=== PATIENT | female | born 1945 | race Caucasian/White ===

== ENCOUNTER 2022-06-10 14:36 | Inpatient (IN) ==
--- NOTE | 2022-06-10 15:06 | Internal Med History&Physical ---
HPI History of Present Illness Patient information: Note initiated : 06/10/22 at 3:04 pm Service Date, if different from initiated Date: [] Patient: Megan Comer a 77 y/o F admitted on for Choledocholithiasis. Chief Complaint: [abdominal pain] Chief complaint: abdominal pain History of present illness: Ms. Comer is a 77 year old F history of atrial fibrillation's status post pacemaker placement and on anticoagulations with Eliquis, chronic systolic CHF on Coreg, Lasix, Aldactone, lisinopril, presenting with epigastric and right upper quadrant abdominal pain. She presented to outside hospital ([facility]) ER, where she got the diagnosis of choledocholithiasis with 7.5 mm gallstone in the distal common bile duct with associated gallbladder wall fluid collection with swelling. The ER physician talked to our GI specialist Dr. Estevez who would want to perform ERCP. They also touch base with general surgeon Dr. Raymond who would want to be found laparoscopic cholecystectomy tomorrow. Admission request was called for medical management. Constitutional Constitutional: Absent chills, excessive sweating, fatigue, fever(s) or weakness EENT Eyes: Absent blurry vision, change in vision, loss of vision or other visual disturbances Ears: Absent decreased hearing or tinnitus Nose, mouth and throat: Absent abnormal hearing, dry mouth, headache(s), nasal congestion or sore throat Cardiovascular Cardiovascular: Absent chest pain, chest pain at rest, edema, irregular heart rhythm or palpatations Respiratory Respiratory: Absent cough, dyspnea or wheezing Gastrointestinal Gastrointestinal: Present abdominal pain; Absent constipation, diarrhea, nausea or vomiting Musculoskeletal Musculoskeletal: Absent back pain, deformity, limited range of motion, muscle cramps, muscle weakness or numbness Integumentary Integumentary: Absent lesions, rash or wounds Neurological Neurological: Absent focal weakness, headache(s) or numbness Psychiatric Psychiatric: Absent anxiety, depression or hallucinations PFSH PFSH All Active Problems (Updated 06/10/22 @ 15:11 by Elan Shelton MD) Choledocholithiasis with acute cholecystitis with obstruction (Acute) VALLE (dyspnea on exertion) (Acute) Post covid-19 condition, unspecified (Acute) Shortness of breath at rest (Acute) Fatigue (Acute) Acute on chronic systolic CHF (congestive heart failure) (Acute) SOB (shortness of breath) (Acute) Productive cough (Acute) Cellulitis (Acute) Hx of atrioventricular node ablation (Acute ~01/10/20) Varicose veins of both lower extremities (Chronic) Adverse effect of COVID-19 vaccine (Acute) History of cardioversion (Chronic ~09/2015) Diverticulosis (Chronic) History of rectocele (Chronic ~12/29/07) History of cystocele (Chronic) Salivary stone (Chronic) Presence of biventricular cardiac pacemaker (Chronic ~09/2012) Glaucoma (Chronic) Pulmonary HTN (Chronic) LBBB (left bundle branch block) (Chronic) PMS (premenstrual syndrome) (Chronic) Mitral regurgitation (Chronic) Other screening breast examination (Chronic) Atrial fibrillation (Chronic) Systolic CHF, chronic (Chronic) Urinary incontinence (Acute) Postmenopausal (Acute) Dilated cardiomyopathy (Acute) Anemia (Acute) Internal hemorrhoids (Acute) Herpes zoster (Acute) Dyspnea on exertion (Chronic) Hyperlipidemia (Acute) Osteopenia (Acute) Insomnia (Acute) Hemorrhoids (Acute) Scoliosis of thoracolumbar spine (Acute) Medication monitoring encounter (Acute) Vaginal atrophy (Chronic) Abnormal thyroid function test (Acute) Medical History Adverse effect of COVID-19 vaccine Atrial fibrillation CHF (congestive heart failure) Diverticulosis Early cataracts, bilateral Glaucoma History of cardioversion (~09/2015) and 06/15/2016 History of cystocele History of echocardiogram History of rectocele (~12/29/07) With incontinence. Dr. Cooper. LBBB (left bundle branch block) Mitral regurgitation Other screening breast examination PMS (premenstrual syndrome) Post covid-19 condition, unspecified Presence of biventricular cardiac pacemaker (~09/2012) Pulmonary HTN Salivary stone Systolic CHF, chronic Varicose veins of both lower extremities Surgical History History of abdominal hysterectomy History of bladder suspension procedure (~12/2007) History of colonoscopy (~12/2006) History of dilation and curettage History of tonsillectomy and adenoidectomy Hx of atrioventricular node ablation (~01/10/20) Family History Sister Cervical cancer Social History marital status: MEDS/ALLERGIES Home Medications and Allergies Home Medications Medication Instructions Recorded Confirmed Type calcium carbonate 600 mg calcium 600 mg PO QDAY 07/24/19 05/14/22 History (1,500 mg) tablet (Calcium) travoprost 0.004 % eye drops 1 drp ophthalmic (eye) QPM 07/24/19 05/14/22 History (Travatan Z) apixaban 5 mg tablet (Eliquis) 5 mg PO BID #180 tabs 07/04/21 05/14/22 Rx lisinopril 5 mg tablet 5 mg PO QHS #90 tabs 08/25/21 05/14/22 Rx potassium chloride 10 mEq See Rx Instructions .Route 01/07/22 05/14/22 Rx tablet,extended release .COMPLEX #90 tabs spironolactone 25 mg tablet See Rx Instructions .Route 01/07/22 05/14/22 Rx .COMPLEX #45 tabs carvedilol 25 mg tablet 25 mg PO BID #60 tabs 01/08/22 05/14/22 Rx omega-3 acid ethyl esters 1 gram 1 cap PO TID 90 days #270 caps 02/11/22 05/14/22 Rx capsule (Lovaza) furosemide 20 mg tablet 20 mg PO QDAY #90 tabs 04/29/22 05/14/22 Rx Allergies Allergy/AdvReac Type Severity Reaction Status Date / Time brimonidine [From Alphagan P] Allergy Intermediate Eye Verified 05/14/22 08:00 Irritation Flecainide Allergy Intermediate Unknown Verified 05/14/22 08:00 EXAM Constitutional General appearance: cooperative and no acute distress Head Head exam: Present atraumatic and normocephalic Eye Eye exam: Present EOMI and PERRL ENT ENT exam: Present mucous membranes moist, normal exam and normal external ear exam Neck Neck exam: Present normal inspection; Absent lymphadenopathy, tenderness or thyromegaly Respiratory Respiratory exam: Absent accessory muscle use, respiratory distress or wheezes Cardiovascular Cardiovascular exam: Present irregular rhythm; Absent JVD Additional comments: pacemaker in place GI/Abdominal GI/Abdominal exam: Present normal bowel sounds and soft; Absent organomegaly or tenderness Extremities Exam Extremities exam: Present full ROM, normal capillary refill and normal inspection; Absent tenderness Neurological Exam Neurological exam: Present alert, CN II-XII intact and oriented X3; Absent motor sensory deficit Psychiatric Psychiatric exam: Present normal affect and normal mood; Absent anxious or depressed Skin Skin exam: Present dry and intact A/P Assessment and plan (1) Choledocholithiasis with acute cholecystitis with obstruction: Status: Acute (2) Systolic CHF, chronic: Status: Chronic (3) Atrial fibrillation: Status: Chronic Qualifiers: Atrial fibrillation type: unspecified persistent Qualified Code(s): I48.19 - Other persistent atrial fibrillation; I48.1 - Persistent atrial fibrillation Narrative A/P Narrative: Assessment and Plans: 1. Choledocholithiasis with cholecystitis with obstruction: Inpatient med surg NPO with IV fluid NS@75cc/hr Consult GI specialist Dr. Fraser for ERCP Consult general surgeon Dr. Raymond for potential laparoscopic cholecystectomy Zosyn Tylenol Oxycodone Morphine IV Holding Eliquis 2. h/o atrial fibrillation s/p pacemaker placement: Holding Eliquis Coreg as rate control 3. h/o chronic systolic CHF: Coreg as rate control Lisinopril Holding Lasix and Aldactone as diuretics since patient is NPO with IV fluid for now GI ppx: not currently indicated DVT ppx: SCDs Code status: Full Prognosis: guarded Disposition: inpatient med surg Time Spent With Patient Time: Total time spent is greater than 50% in coordination of care (as documented) at patient's floor/unit and/or counseling patient: Total time spent with greater than 50% in coordination of care (as documented) at patient's floor/unit and/or counseling patient:: 50 - 70 minutes
--- OUTSIDE RECORDS SUMMARY | 2022-06-10 15:29 | External Medical Summary | Encounter Summary ---
:1945 Author Care Team Providers Name Role Phone Evelia Mixon MD Primary Care Provider [phone] Reason for Visit 1 WK FOLLOW-UP Assessment and Plan Assessment Note Total time: 50 minutes. Preparing to se e the patient (i.e. review of tests, prior records, imaging, etc.), obtaining revie wing history, performing medically appropriate examination and evaluation, counseling and education with the patient/family/caregiver, ordering medic ations, tests, or procedures, referring and communicating with other healthcare prof essionals, documenting clinical information in the health record, documentation on t he day of encounter, independently interpreting results (not if separately reported), communicating results to patient/family/caregiver, and care coord ination (that is not separately reported). 1. Acute on chronic systolic heart fail ure LV Function EF % NYHA Class AHA/ACC Stage 2000 mg sodium restriction Cr 0.7 Meds: RACHEAL/ARB: lisinopril Beta-kulwant: carvedilol Aldosterone receptor antagonist: spirono lactone Loop diuretic: furosemide Discussion: Fluid status improved although still davalos s a bit to go. Need to check BMP,BNP. Increase spironolactone 25 mg daily and continue furosemide 10 mg daily with additional 10 mg for acute weight gain more than 2lbs in 24H. Acute decrease in LV function will proc eed with ischemic and non-ischemic evaluations. Apparently amyloidosis in the family. Need to continue to intensely monitor fl uid status, renal function, and electrolytes. BMP, serum or plasma pro BNP (pro B-type natriuretic pepti de), serum or plasma 2. Dilated cardiomyopathy Etiology is not quite clear. Mother wit h amyloid. We will initiate screening with light chains, SPEP, TSH, ferritin, and P YP scan. protein electrophoresis panel, serum or plasma kappa + lambda light chains, free + r atio, quantitative, serum unlisted imaging order - electronic warfare technician netium SPECT ferritin, serum or plasma TSH, serum or plasma 3. Essential hypertension Controlled on the current regimen. 4. Biventricular automatic implantable cardioverter defibrillator in situ In-office evaluation of BiV ICD implant ed for dilated cardiomyopathy Findings: Normal device function with on e episode of NSVT. Routine device clinic f/u 5. Dyspnea on exertion Acute exacerbation resolving. However, acute decline in LV systolic function again. We will check a lexiscan also for ischem ia. lexiscan cardiolite stress test (PROC ) Discussion Note 1. Stop potassium 2. Continue spironolactone 25 mg 3. May try furosemide 10 mg but must frank e additional 10 mg for acute weight gain more than 2 lbs in 24 H. (Frustrated with urinary frequency) 4. Amyloid screening 5. Lexiscan 6. F/U 3 weeks Patient educational handouts: No information available. Plan of Care Reminders Provider Appointments Ferny Ruiz 06/17/2022 Elvis Garcia NP 10:30AM Lab BMP, Serum or Plasma 05/27/2022 [facility] Pro BNP (Pro B-type 05/27/2022 [facility] Natriuretic Peptide), Serum or L ab Plasma Protein Electrophoresis 06/01/2022 [facility] Panel, Serum or Plasma Lab [place] + Lambda Light [place], 06/01/2022 [facility] Free + Ratio, Quantitative, Lab Serum Ferritin, Serum or Plasma 06/01/2022 [facility] TSH, Serum or Plasma 06/01/2022 [facility] Referral None recorded. Procedures Lexiscan Cardiolite Stress 06/02/2022 [facility] Radiology Test (PROC) Surgeries None recorded. Imaging Unlisted Imaging Order 06/09/2022 [facility] R adiology Medications Name Start Date carvedilol 25 mg tablet TAKE 1 TABLET BY MOUTH TWICE DAILY WITH THE MORNING A ND EVENING MEAL Eliquis 5 mg tablet Take 1 tablet twice a day by oral route. furosemide 20 mg tablet TAKE 1/2 TABLET BY MOUTH ONCE DAILY latanoprost 0.005 % eye drops INSTILL 1 DROP INTO AFFECTED EYE(S) BY OPHTHALMIC ROUTE ONCE DAILY INTHE EVENING lisinopril 5 mg tablet TAKE 1 TABLET BY MOUTH EVERY NIGHT AT BEDTIME melatonin omega-3 acid ethyl esters 1 gram capsule Take 1 capsule 3 times a day by oral route as directe d for 90 days. Sleep Aid (diphenhydramine) 25 mg capsule Take by oral route. spironolactone 25 mg tablet Take 1 tablet every day by oral route. Notes: Still not feeling well with spi ronolacrtone, verified medications with patient verbally. No changes. -AG 05/27 Medications Administered None recorded. Vitals Height Weight BMI Blood Pressure 5 ft 1 in 124 lbs 23.4 kg/m2 118/66 mm[Hg] Results Lab Results Date Name Specimen Result Interpretation Description Value Range Status Address 06/02/2022 TSH, Serum Plasma Thyroid 3.14 0.27-5.01 Nita l [facility] or Plasma Stimulating uIU/mL uIU/mL Re gional Lab: Hormone If [address] , [place] 06/02/2022 Ferritin, Plasma Ferritin 344.0 30.0-400.0 Fin al [facility]ologists' Serum or NG/mL NG/mL Regional Lab: Plasma [address] [facility] , [place] 06/02/2022 [place] + Serum [place] Light 19.02 3.30-19.40 Fi nal Pathologists' Lambda Chains, Free mg/L mg/L Vanessa onal Lab: Light [address] [facility] , [place], [place] Free + Ratio, Quantitati ve, Serum Serum Lambda Light 14.82 5.71-26.30 Final [facility] Chains, Free mg/L mg/L Vanessa onal Lab: [address] [place] [address] Serum [place]/lambda 1.283 0.260-1.65 Final [facility]ologists' Ratio 0 Regional L ab: [address] [place] [address] , [place] 06/02/2022 Protein Serum Total Protein 7.0 5.9-8.4 Fin al [facility]ologists' Electropho Sep gm/dL gm/dL Region al Lab: resis [address] , [facility] Serum or Plasma Serum Albumin Sep 3.57 3.10-4.70 Final P athologists' gm/dL gm/dL Regional L ab: [address] [place] [address] , [place] Serum Ssacr-4-Tgjve 0.33 0.10-0.50 Final Pathologists' socorro gm/dL gm/dL Regional L ab: [address] [place] [address] , [place] Serum Raogw-0-Ofjxo 0.91 0.40-1.20 Final Pathologists' socorro gm/dL gm/dL Regional L ab: [address] [place] [address] , [place] Serum High Beta 1.28 0.60-1.20 Final Patholo gists' Globulins gm/dL gm/dL Regiona l Lab: [address] , [place] Serum Gamma 0.91 0.50-1.70 Final Patholo gists' Globulins gm/dL gm/dL Regiona l Lab: [address] [place] [address] Serum Globulin Sep 3.4 2.4-3.6 Final Pa thologists' gm/dL gm/dL Regional L ab: [address] [place] [address] Serum A/g Ratio Sep 1.0 0.9-1.7 Final P athologists' ratio ratio Regional L ab: [address] [place] [address] Serum Interpretatio see Final Pa thologists' n comment Regional Lab: [address] [place] [address] 05/27/2022 Pro BNP Plasma High Probnp 3282.0 <450.0 Final Path ologists' (Pro pg/mL pg/mL Regional L ab: B-type [address] [place] [address] , [place] Jonathan on c Peptide), Serum or Plasma 05/27/2022 BMP, Serum Plasma High Glucose,rando 136 70-105 F inal Pathologists' or Plasma m mg/dL mg/dL Regiona l Lab: [address] [place] [address] Plasma Blood Urea 16 mg/dL 8-23 mg/dL Final [facility]ologists' Nitrogen Regional Lab: [address] [place] [address] , [place] Plasma Creatinine 0.7 0.6-1.1 Final Path ologists' mg/dL mg/dL Regional L ab: [address] [place] [address] Plasma Low Sodium 132 133-145 Final Patholog ists' mmol/L mmol/L Regional L ab: [address] [place] [address] Plasma Potassium 4.0 3.3-5.1 Final Patho logists' mmol/L mmol/L Regional L ab: [address] [place] [address] , [place] Plasma Low Chloride 95 96-108 Final Patholo gists' mmol/L mmol/L Regional L ab: [address] [place] [address] , [place] Plasma Low Carbon 21 22-30 Final Pathologi sts' Dioxide mmol/L mmol/L Regional Lab: [address] [place] [address] Plasma Anion Gap 16.0 8.0-16.0 Final Path ologists' Regional L ab: [address] [place] [address] Plasma Calcium 10.0 8.6-10.4 Final Pathol ogists' mg/dL mg/dL Regional L ab: [address] [place] [address] , [place] Plasma Glomerular 85 Final Patho logists' Filtration Region al Lab: Rate [address] [place] [address] Allergies Code Code System Name Reaction Severity Onset 783774 RxNorm Brimonidine Tachycardia 4441 RxNorm Flecainide Tachycardia NKDA Problems Name Status Onset Date Source Hyperlipidemia Active 04/16/2008 Dilated Cardiomyopathy Active 09/15/2011 Chronic Systolic Heart Failure Active 04/17/2012 Essential Hypertension Active 04/23/2016 Non-rheumatic Mitral Regurgitation Active 08/05/2016 Atrial Fibrillation and Flutter Active 03/16/2017 Biventricular Automatic Implantable Cardioverter Defibrillat or Active 05/13/2017 in Situ Maintenance of Automatic Cardiac Defibrillator Active 0 12/28/2018 Notes: Biventricular defibrillator, Me dtronic implanted in 2016. Lead[address] in place since 2012. Procedures Date Name Performed by 05/13/2017 Defibrillator Placement Information not available Notes: Biventricular Medtronic Defibri llator, leads implanted 10/08/2012 06/15/2016 Cardioversion Information not avai lable 05/25/2016 Heart Catheterization Information not av ailable Notes: CARDIAC/L HEART CATH/L VGRAM/CO R ANGIO 04/27/2016 Cardioversion Information not avai lable 09/26/2015 Cardioversion Information not avai lable 09/13/2014 Cardioversion Information not avai lable 10/04/2012 Defibrillator Placement Information not available Notes: BiVentricular Defibrillator- Dr Dinesh Groves 07/02/2005 Heart Catheterization Information not av ailable Notes: Bilateral Heart Catheterization and Angiography Tonsillectomy Information not avai lable Hysterectomy Information not avai lable Vaccine List Notes: Some vaccines listed in Documen t: #[id number] could not be added to this patient's chart. Please review this docu ment and add these vaccines to the patient's chart manually as needed. Social History Tobacco Smoking Status Never Smoker What is your level of alcohol consumption? None Are you able to walk? YESWOREST Has tobacco cessation counseling been provided? N Which illicit or recreational drugs have you used? none How much tobacco do you chew? none Are you passively exposed to smoke? N What was the date of your most recent tobacco screening? 12/2021 What is your level of caffeine consumption? Moderate At what age did you start smoking tobacco? 0 How many years have you smoked tobacco? 0 Family History Relation Problem Onset Age of Age Notes Mother Staphylococcal infectious (No Information) N/A (No Notes) disease Functional Status Unknown. Past Encounters 05/27/2022 Acute on Chronic Systolic Heart Failure; Dilated Cardiomyopathy; Essential Hypertension; Biventricular Automatic Implantable Cardioverter Defibrillator in Situ; Dyspnea on Exertion Dotty Garcia BLOCK HANDLER: [address] [place] [address], [place] [id number], Ph. 05/20/2022 Acute on Chronic Systolic Heart Failure; Dilated Cardiomyopathy; Essential Hypertension; Biventricular Automatic Implantable Cardioverter Defibrillator in Situ Jose Alberto Rai MD: [address] [place] [address] , [place] [id number], Ph. History of Present Illness Note: <div>Megan returns today and reports that she does feel better with diuresis. However, still reports VALLE. </div><div>
</div><div>Last visit:</div><div>1. Echo </div><div>2. Call with results </div><div>3. Increase lasix and aldactone </div><div>4. Follow up in one week.</div><div>
</div><div>CARDIAC and medical history: </div><div>LBBB </div><div>Nonischemic cardiomyopathy </div><div>Normal heart cath. </div><div>BiV iCD 2012 with gen change 2017 </div><div>Chronic atrial flutter </div><div> </div><div> </div><div>Data review: </div><div>I have independently interpreted: </div><div>
</div><div>US/COMPLETE ECHOCARDIOGRAPHY 05/26/22</div><div>CONCLUSIONS: </div><div>1. Moderate left ventricular dilation. Moderate global hypokinesis </div><div>with an estimated left ventricular ejection fraction 30-35%. </div><div>2. Moderate left ventricular diastolic dysfunction, with mildly </div><div>elevated left ventricular filling pressure. </div><div>3. Normal right ventricular size with mild global hypokinesis. </div><div>4. Severe left atrial and mild right atrial enlargement. </div><div>5. Mild aortic insufficiency. </div><div>6. Moderate mitral and tricuspid regurgitation. </div><div>7. Mild pulmonary hypertension. </di v><div>8. No pericardial effusion. </div><div>9. Compared to the prior study in August 2021 mild the left </div><div>ventricular systolic dysfunction appears to have deteriorated. </div><div>
</div><div>
</div><div>CXR 04/2022. Interstitial edema </div><div>Echo 08/2021. EF 40. Moderate MR. </div><div> </div><div>Labs: </div><div>BNP 4691 </div><div>AST 138 </div><div>Cr 0.8 </div><div>BNP 78176 04/2022 </div><div>Cr 0. </div><div>Trop < 0.01 04/2022 </div>Review of Systems: ROS as noted in the HPI Review of Systems Brief Cardiology ROS Reported By: Patient Cardio Basic: Cardiovascular Symptoms: dys pnea on exertion, fatigue, palpitations Physical Exam Notes: <div>General. No acute distr ess. Conversant. </div><div> </div><div>HEENT. Normocephalic atraumatic. Mu cous membranes moist. Sclera anicteric. Oropharynx clear. </div><div> </div> <div>Chest. Clear. Normal effort. Symmetric. </div><div> </div><div>Ca rdiovascular. Neck veins elevated. Normal S1 and S2. No gallops or rubs. </di v><div> </div><div>Abdomen. Normal bowel sounds. Soft nontender nondistended. No appreciated hepatosplenomegaly. </div><div> </div><div>Extremities. No c yanosis. No clubbing. No edema. </div><div> </div><div>Skin. Warm and dr y. No rashes. </div><div> </div><div>Neurological. Alert and oriented x3. Nonfo bonilla. No asymmetry is noted. </div><div> </div><div>Psychiatric. Affe ct and tone are normal.</div>
--- OUTSIDE RECORDS SUMMARY | 2022-06-10 15:29 | External Medical Summary | Encounter Summary ---
:1945 Author Care Team Providers Name Role Phone Evelia Mixon MD Primary Care Provider [phone] Reason for Visit new patient Assessment and Plan 1. Acute on chronic systolic heart fail ure Acute decompensation of CHF. Neck veins elevated. Recent ED visit. BNP 10K. Needs more aggressive diuresis. Increase lasix to 30 mg daily. Increase spironolactone to 25 mg daily. Daily weights. Fluid and sa lt restriction. Follow up closely. Need to intensively monitor electrolytes and addis al function while diuresing. 2. Dilated cardiomyopathy EF 40% in August -- declined since pre vious. Plan to repeat echo given decompensation. trans-thoracic echocardiogram (TTE) ( PROC) 3. Essential hypertension BP reasonable 4. Biventricular automatic implantable cardioverter defibrillator in situ Functioning appropriately. Discussion Note 1. Echo 2. Call with results 3. Increase lasix and aldactone 4. Follow up in one week. Patient educational handouts: No information available. Plan of Care Reminders Provider Appointments Ferny Ruiz 06/17/2022 Elvis Garcia NP 10:30AM Lab None recorded. Referral None recorded. Procedures Trans-thoracic Echocardiogram 05/20/2022 [facility] Radiology (TTE) (PROC) Surgeries None recorded. Imaging None recorded. Medications Name Start Date carvedilol 25 mg [...] BMI Blood Pressure 5 ft 1 in 121.4 lbs 22.9 kg/m2 111/74 mm[Hg] Results Lab Results None recorded. Allergies Code Code System Name Reaction Severity Onset 383933 RxNorm Brimonidine Tachycardia 4441 RxNorm Flecainide Tachycardia [...] Notes: Some vaccines listed in Documen t: #[id number] could not be added to this patient's [...] Notes) disease Functional Status Unknown. Past Encounters 05/20/2022 Acute on Chronic Systolic Heart Failure; Dilated Cardiomyopathy; Essential Hypertension; Biventricular Automatic Implantable Cardioverter Defibrillator in Situ Jose Alberto Rai MD: [address] [place] [address] , [place] [phone], Ph. History of Present Illness Note: <div>Recent viral illness. Temp 100. Difficult breathing. Went to ED. Pulmonary vascular congestion. </div><div>Decompensated systolic chf.</div><div>Started taking vinegar and honey.</div><div>Patient last seen in office November 2018</div><div>
</div><div><strong>CARDIAC and medical history:</strong></div><div>LBBB</div><div>Nonischemic cardiomyopathy</div><div>Normal heart cath. </div><div>BiV iCD 2012 with gen change 2016</div><div>Chronic atrial flutte r</div><div>
</div><div>
</div><div><strong>Data review:</strong></div><div>I have independently interpreted:</div><div>CXR 04/2022. Interstitial edema</div><div>Echo 08/2021. EF 40. Moderate MR.</div ><div>
</div><div><strong>Labs:</strong></div><div>BNP 4691</div><div>AST 138</div><div>Cr 0.8</div><div>BNP 38789 04/2022</div><div>Cr 0.9 04/2022</div><div>Trop < 0.01 04/2022</div ><div>
</div><div>
</div><div>
</div&g t;<div>
</div><div>
</div><div>
</div><div>
</div><p>Patient is here for follow-up of her chronic systolic heart failure due to known ischemic dilated cardiomyopathy, most likely hypertensive heart disease with left bundle branch block. She is in chronic atrial flutter with good resynchronization. Biventricular defibrillator implanted in 2012 with generator replacement in 2017. Paroxysmal atrial arrhythmia since before device implantation recurrent on amiodarone. She was evaluated for ablation in 2017, however, in view of a stable symptoms and clinical findings she decided not to proceed with invasive treatment. She had been off amiodarone since with good resynchronization and no recurrence of heart failure symptoms.</p><div>
</div><p>She denies VALLE, fatigue or dizziness, CP, palpitation, PND, SOB at rest, orthopnea, ELAYNE or syncope. She has no claudication and keeps regularexercise including hiking.</p><div>
</div><p>She has no diabetes, no myocardial infarction or coronary artery disease [normally cath], had long standing hypertension, well controlled on present regimen, no diabetes, stroke or TIA. She has hypercholesterolemia but is adamant about not taking statin.</p><div>
</div><p>She had [employer] biventricular defibrillator implanted in 2012, generator replacement in 2017. Never had ventricular arr hythmias or shocks.</p><div>
</div><p>Occasionally after busy day she feels that her heart rate is faster than normal when she goes to bed, she takes Benadryl with resolution of symptom, she never took pause to tell me when her heart rate actually is with symptoms. Shehad coronary angiogram and ultrasound which showed that with RVR patient has significant mitral insufficiency improved significantly with the heart rate 60 -70 bpm. On present medical therapy she remains paced 96.3%. Recommended Replacement Time for defibrillator was reached on February 19. </p><div>
</div><p>Normal blood work including normal TSH, electrolytes and kidney function. Last digoxin level was within therapeutic range.</p><div>
</div><div>
</div><p>Cardiac Procedures:</p><div>
</div><p>Echo 05/2016, at [facility]. </p><div>
</div><p>A heart cath 05/2016, [facility]: no CAD </p><div>
</div><p>last CV 05/2016 </p><div>
</div><p>CRTD, MDT device since 2012, generator replacement 2016.</p><div>
</div><p> Lifestyle and Disease Management: Diet: She consumes a diverse and healthy diet. Weight Issues: She does not have any weight concerns. Exercise: She exercises regularly. Smoking: She does not use tobacco. Alcohol: She denies alcohol use. Drug Use: She denies drug use</p><div>
</div><div>
</div><p>ECG today shows biventricular paced rhythm at 74 ppm. 100% capture. QRS 148 ms.</p><div>< br></div> Review of Systems Brief Cardiology ROS Reported By: Patient Cardio Basic: Cardiovascular Symptoms: lig htheadedness, dyspnea on exertion, fatigue, palpitations Physical Exam Notes: <div>Examination</div><div>< br></div><div>Vitals see above</div><div>
</div><d iv>General. No acute distress. Conversant.</div><div>
</div><div>HEENT. Normocephalic atraumatic. Mucous membranes moist. Scle ra anicteric. Oropharynx clear.</div><div>
</div>< div>Chest. Clear. Normal effort. Symmetric.</div><div>
</d iv><div>Cardiovascular. Neck veins elevated. Normal S1 and S2. No gallops or rubs.</div><div>
</div><div>Abdomen. Normal bowel sounds. Soft no ntender nondistended. No appreciated hepatosplenomegaly.</div><di v>
</div><div>Extremities. No cyanosis. No clubbing. No edema.</div><di v>
</div><div>Skin. Warm and dry. No rashes.</div><div>
</div> <div>Neurological. Alert and oriented x3. Nonfocal. No asymmetry is no yunior.</div><div>
</div><div>Psychiatric. Affect and tone are normal.</div><d iv>
</div><div>
</div><div>
</div>
--- OUTSIDE RECORDS SUMMARY | 2022-06-10 15:29 | External Medical Summary ---
:1945 Author Care Team Providers Name Role Phone SHANEKA ARROYO MD Primary Care Provider [phone] Allergies Code Code System Name Reaction Severity Status Onset 197159 RxNorm Brimonidine Tachycardia Active 4441 RxNorm Flecainide Tachycardia Active NKDA Medications Name Status Start Date Stop Date amoxicillin 500 mg capsule Completed 11/24 amoxicillin 500 mg tablet Completed 2021 azithromycin 250 mg tablet Completed 05/20 Azopt 1 % eye drops,suspension Completed 1 Instill 1 drop every day by ophthalmic route in the morning for 90 days. carvedilol 25 mg tablet Active Not avai lable cephalexin 250 mg capsule Completed 2016 cephalexin 500 mg capsule Completed 2021 Digox 125 mcg (0.125 mg) tablet Completed 11/24/2018 dorzolamide 2 % eye drops Completed 2021 doxycycline hyclate 100 mg capsule Completed 12/31/2017 Eliquis 5 mg tablet Active Not availabl e furosemide 20 mg tablet Active Not avai lable latanoprost 0.005 % eye drops Active No t available levofloxacin 250 mg tablet Completed 02/21 lisinopril 5 mg tablet Active Not avail able melatonin Active Not available nitrofurantoin monohydrate/macrocrystals 100 mg capsule Complete d 05/20/2018 omega-3 acid ethyl esters 1 gram capsule Active Not available Take 1 capsule 3 times a day by oral route as directed for 90 d ays. oseltamivir 75 mg capsule Completed 2017 potassium chloride ER 10 mEq tablet,extended release Completed 06/01/2022 promethazine 6.25 mg-codeine 10 mg/5 mL syrup Completed 05/16/2018 Sleep Aid (diphenhydramine) 25 mg capsule Active Not available Take by oral route. spironolactone 25 mg tablet Active Not available Take 1 tablet every day by oral route. Notes: Still not feeling well with spi ronolacrtone, verified medications with patient verbally. No changes. -AG 05/27 Problems Name Status Onset Date Source Hyperlipidemia Active 04/16/2008 Dilated Cardiomyopathy Active 09/15/2011 Chronic Systolic Heart Failure Active 04/17/2012 Essential Hypertension Active 04/23/2016 Left Bundle Branch Block Unknown 04/23/2016 Non-rheumatic Mitral Regurgitation Active 08/05/2016 Atrial Fibrillation and Flutter Active 03/16/2017 Biventricular Automatic Implantable Cardioverter Active 05/13/2017 Defibrillator in Situ Maintenance of Automatic Cardiac Defibrillator [...] avai lable Hysterectomy Information not avai lable 11/24/2018 Electrocardiogram [facility] [place] [address] [place] [id number] (Work Place) 11/24/2018 US, Echocardiogram, Transthoracic, Compl ete, [facility] Radiology W/ Color Flow [address] [place] [id number] (Work Place) 06/09/2022 Unlisted Imaging Order [facility] [address] [place] [phone] (Work Place) Results Lab Results Date Name Specimen Result Interpretation Description Value Range Status Address 06/02/2022 TSH, Serum Plasma Thyroid 3.14 0.27-5.01 Nita l Pathologists' or Plasma Stimulating uIU/mL uIU/mL Re gional Lab: Hormone If [address] [facility] 06/02/2022 Ferritin, Plasma Ferritin 344.0 30.0-400.0 Fin al Pathologists' Serum or NG/mL NG/mL Regional Lab: Plasma [address] [facility] , [place] 06/02/2022 Segundo + Serum Segundo Light 19.02 3.30-19.40 Fi nal Pathologists' Lambda Chains, Free mg/L mg/L Vanessa onal Lab: Light [address] [facility] , Chains, [place] Free + Ratio, Quantitati ve, Serum Serum Lambda Light 14.82 5.71-26.30 Final Pathologists' Chains, Free mg/L mg/L Vanessa onal Lab: [address] [facility] , [place] Serum Segundo/lambda 1.283 0.260-1.65 Final Pathologists' Ratio 0 Regional L ab: [address] [place] [address] , [place] 06/02/2022 Protein Serum Total Protein 7.0 5.9-8.4 Fin al Pathologists' Electropho Sep gm/dL gm/dL Region al Lab: resis [address] , Panel, [place] Serum or Plasma Serum Albumin Sep 3.57 3.10-4.70 Final P athologists' gm/dL gm/dL Regional L ab: [address] [facility] , [place] Serum Anuii-0-Cjacu 0.33 0.10-0.50 Final Pathologists' socorro gm/dL gm/dL Regional L ab: [address] [facility] , [place] Serum Takew-2-Dhzyc 0.91 0.40-1.20 Final Pathologists' socorro gm/dL gm/dL Regional L ab: [address] [facility] , [place] Serum High Beta 1.28 0.60-1.20 Final Patholo gists' Globulins gm/dL gm/dL Regiona l Lab: [address] [facility] , [place] Serum Gamma 0.91 0.50-1.70 Final Patholo gists' Globulins gm/dL gm/dL Regiona l Lab: [address] [facility] , [place] Serum Globulin Sep 3.4 2.4-3.6 Final Pa thologists' gm/dL gm/dL Regional L ab: [address] [place] [address] , [place] Serum A/g Ratio Sep 1.0 0.9-1.7 Final P athologists' ratio ratio Regional L ab: [address] [place] [address] , [place] Serum Interpretatio see Final Pa thologists' n comment Regional Lab: [address] [facility] , [place] 05/27/2022 Pro BNP Plasma High Probnp 3282.0 <450.0 Final Path ologists' (Pro pg/mL pg/mL Regional L ab: B-type [address] [facility] , Natriureti Jonathant on c Peptide), Serum or Plasma 05/27/2022 BMP, Serum Plasma High Glucose,rando 136 70-105 F inal Pathologists' or Plasma m mg/dL mg/dL Regiona l Lab: [address] [place] [address] Plasma Blood Urea 16 mg/dL 8-23 mg/dL Final Pathologists' Nitrogen Regional Lab: [address] [place] [address] , [place] Plasma Creatinine 0.7 0.6-1.1 Final Path ologists' mg/dL mg/dL Regional L ab: [address] [facility] , [place] Plasma Low Sodium 132 133-145 Final Patholog ists' mmol/L mmol/L Regional L ab: [address] [place] [address] , [place] Plasma Potassium 4.0 3.3-5.1 Final Patho logists' mmol/L mmol/L Regional L ab: [address] [place] [address] , [place] Plasma Low Chloride 95 96-108 Final Patholo gists' mmol/L mmol/L Regional L ab: [address] [place] [address] Plasma Low Carbon 21 22-30 Final Pathologi sts' Dioxide mmol/L mmol/L Regional Lab: [address] [place] [address] Plasma Anion Gap 16.0 8.0-16.0 Final Path ologists' Regional L ab: [address] [place] [address] , [place] Plasma Calcium 10.0 8.6-10.4 Final Pathol ogists' mg/dL mg/dL Regional L ab: [address] [place] [address] Plasma Glomerular 85 Final Patho logists' Filtration Region al Lab: Rate [address] [place] [address] 11/23/2018 Digoxin, No observation Free, recorded. Serum 11/23/2018 BMP, Serum No observation Forrest or Plasma recorded. [facility]: [address] [facility] 11/23/2018 Lipid No observation Panel, recorded. Serum Past Encounters 05/27/2022 Acute on Chronic Systolic Heart Failure; Dilated Cardiomyopathy; Essential Hypertension; Biventricular Automatic Implantable Cardioverter Defibrillator in Situ; Dyspnea on Exertion Dotty Garcia, EQUIPMENT HIRE MANAGER: [address] [place] [address], [place] [phone], Ph. 05/20/2022 Acute on Chronic Systolic Heart Failure; Dilated Cardiomyopathy; Essential Hypertension; Biventricular Automatic Implantable Cardioverter Defibrillator in Situ Jose Alberto Rai MD: [address] [place] [address] , [place] [id number], Ph. Social History Tobacco Smoking Status Never Smoker Vaccine List Notes: Some vaccines listed in Documen t: #[id number] could not be added to this patient's chart. Please review this docu ment and add these vaccines to the patient's chart manually as needed. Plan of Care Reminders Provider Appointments None recorded. Lab None recorded. Referral None recorded. Procedures None recorded. Surgeries None recorded. Imaging None recorded. Vitals 05/27/2022 10:45AM Dotty- Established Short Height Weight BMI Blood Pressure 5 ft 1 in 124 lbs 23.4 kg/m2 118/66 mm[Hg] 05/20/2022 08:30AM CARDIO- NEW PATIENT Height Weight BMI Blood Pressure 5 ft 1 in 121.4 lbs 22.9 kg/m2 111/74 mm[Hg] 11/24/2018 01:00PM Established Patient 30 Height Weight BMI Blood Pressure 5 ft 1 in 120 lbs 22.7 kg/m2 120/80 mm[Hg]
[2022-06-10] MEDS ORDERED: PROPOFOL 200 MG/20 ML VIAL IV ONE (15:43)
[2022-06-10] MEDS ORDERED: IPRATROPIUM/ALBUTEROL 3 ML AMPUL.NEB NEB PRN (15:56)
[2022-06-10] MEDS ORDERED: traZODone HCL 50 MG TABLET PO PRN (15:56)
[2022-06-10] MEDS ORDERED: ACETAMINOPHEN 325 MG TABLET PO PRN (15:56)
[2022-06-10] MEDS ORDERED: MIDAZOLAM 2 MG/2 ML VIAL IV ONE (16:30)
[2022-06-10] MEDS ORDERED: INDOMETHACIN 50 MG SUPP.RECT PR ONE (17:00)
[2022-06-10] MEDS ORDERED: NITROGLYCERIN 0.6 MG/HR PATCH TD ONE (17:00)
[2022-06-10] MEDS ORDERED: INDOMETHACIN 25 MG CAPSULE PO ONE (17:03)
[2022-06-10 17:18] LABS: ALT/SGPT 71 U/L (<40); AST/SGOT 44 U/L (<32); Albumin 3.7 gm/dL (3.2-5.2); Albumin/Globulin Ratio 1.4 (1.0-2.3); Alkaline Phosphatase 270 U/L (39-117); Bilirubin,Direct 1.6 mg/dL (<0.3); Bilirubin,Total 2.3 mg/dL (0.1-1.0); Blood Urea Nitrogen 13 mg/dL (8-23); Calcium 9.3 mg/dL (8.6-10.4); Carbon Dioxide 25 mmol/L (22-30); Chloride 96 mmol/L (96-108); Globulin 2.6 gm/dL (2.2-3.7); Glomerular Filtration Rate 85; Glucose 102 mg/dL (70-105); Lactate Dehydrogenase 152 U/L (135-225); Phosphorous 4.3 mg/dL (2.5-4.5); Triglycerides 74 mg/dL (<150); Uric Acid 4.3 mg/dL (2.5-8.0)
[2022-06-10] MEDS: 0.9 % SODIUM CHLORIDE 1,000 ML IV SCH (17:25)
[2022-06-10] MEDS: LACTATED RINGERS 1,000 ML IV SCH ×2 (17:30→21:52)
[2022-06-10] MEDS ORDERED: GENTAMICIN SULFATE 80 MG/2 ML VIAL IJ ONE (18:10)
[2022-06-10] MEDS ORDERED: IOHEXOL 300 10 ML VIAL IJ ONE (18:10)
[2022-06-10] MEDS ORDERED: GENTAMICIN PER PHARMACY IV ONE (18:10)
[2022-06-10] MEDS: PIPERACILLIN SODIUM/TAZOBACTAM 3.375 GM in DEXTROSE 5% IN WATER 50 ML IV SCH ×2 (19:32→23:41)
[2022-06-10] MEDS: DOCUSATE SODIUM 100 MG CAPSULE PO SCH (21:50)
[2022-06-10] MEDS: CARVEDILOL 12.5 MG TABLET PO SCH (21:50)
[2022-06-10] MEDS: SENNOSIDES 1 TABLET PO SCH (21:51)
[2022-06-10] MEDS: FISH OIL 1,000 MG CAPSULE PO SCH (21:51)
[2022-06-10] MEDS: LATANOPROST OPHTH DROPS 2.5ML BOTTLE OU SCH (21:51)
[2022-06-10] MEDS: MELATONIN 3 MG TABLET PO SCH (21:51)
[2022-06-10] MEDS: LISINOPRIL 5 MG TABLET PO SCH (21:51)
[2022-06-10] MEDS: 0.9 % SODIUM CHLORIDE 10 ML SYRINGE IV SCH (21:52)
[2022-06-11] MEDS: 0.9 % SODIUM CHLORIDE 10 ML SYRINGE IV SCH ×3 (05:12→20:30)
[2022-06-11] MEDS: PIPERACILLIN SODIUM/TAZOBACTAM 3.375 GM in DEXTROSE 5% IN WATER 50 ML IV SCH ×2 (05:12→11:33)
[2022-06-11] MEDS: 0.9 % SODIUM CHLORIDE 1,000 ML IV SCH ×2 (05:13→11:32)
[2022-06-11 06:23] LABS: Basophils # (Auto) 0.03 K/mcL (0.00-0.30); Basophils % (Auto) 0.4 % (0.0-2.0); Eosinophils # (Auto) 0.18 K/mcL (0.00-0.70); Eosinophils % (Auto) 2.2 % (0.0-7.0); Hematocrit 36.6 % (34.1-44.9); Hemoglobin 12.1 g/dL (11.2-15.7); Lymphocytes # (Auto) 1.61 K/mcL (1.50-4.80); Lymphocytes % (Auto) 19.7 % (15.5-49.0); Mean Cell Volume 89.3 fL (80.0-100.0); Mean Corpuscular HGB Conc 33.1 g/dL (31.0-36.0); Mean Platelet Volume 10.1 fL (8.8-12.5); Monocytes # (Auto) 0.67 K/mcL (0.10-0.90); Monocytes % (Auto) 8.2 % (1.0-12.0); Neutrophils % (Auto) 69.1 % (38.0-78.0); Platelet Count 254 K/mcL (140-440); Red Cell Distribution Width 14.6 % (11.5-14.5); WBC 8.2 K/mcL (4.5-11.0)
[2022-06-11 06:44] LABS: ALT/SGPT 67 U/L (<40); AST/SGOT 46 U/L (<32); Albumin 3.6 gm/dL (3.2-5.2); Albumin/Globulin Ratio 1.6 (1.0-2.3); Alkaline Phosphatase 255 U/L (39-117); Bilirubin,Total 1.8 mg/dL (0.1-1.0); Blood Urea Nitrogen 13 mg/dL (8-23); Calcium 8.9 mg/dL (8.6-10.4); Carbon Dioxide 22 mmol/L (22-30); Chloride 98 mmol/L (96-108); Globulin 2.2 gm/dL (2.2-3.7); Glomerular Filtration Rate 85; Glucose 101 mg/dL (70-105)
[2022-06-11] MEDS: LACTATED RINGERS 1,000 ML IV SCH ×3 (06:59→20:44)
[2022-06-11] MEDS: oxyCODONE HCL 5 MG TABLET PO PRN ×2 (07:46→23:55)
[2022-06-11] MEDS ORDERED: NON FORMULARY MEDICATION 1 DOSE MISCELL (Acetaminophen 500 mg Capsule) PO PRN (07:48)
--- NOTE | 2022-06-11 09:11 | ERCP Procedure Note ---
ERCP Procedure Note Procedure Information Patient information: Note initiated : 06/11/22 at 9:09 am Patient: Megan Comer 77 y/o F admitted on 06/10/22 for Obstructive jaundice. Pre-op diagnosis general: Obstructive jaundice. Post-op diagnosis general: Malignant stricture. Probable pancreatic cancer. Date of Procedure: 06/10/22 Procedure: ERCP with Stent Placement Procedure narrative: The procedures, alternatives and risks were discussed with the patient and the patient's questions were answered. She was advised for the risks of bleeding, pancreatitis, perforation and infection. With endoscopist-administered intravenous sedation, the Olympus side viewing operating duodenoscope was introduced into the esophagus and advanced to the second part of the duodenum without difficulty. The ampulla of Vater was visualized and papillotomy performed. The bile duct was selectively cannulated taking care to avoid the pancreatic duct and cholangiogram obtained. The bile duct was markedly dilated (about 1cm) with a malignant stricture. Pancreatic duct was markedly dilated. A 10Fr-5cm stent was placed. The scope was withdrawn. Assessment: Malignant stricture. Probable pancreatic cancer. Patient will require EUS and ERCP with probable wall stent.
[2022-06-11] MEDS: CARVEDILOL 12.5 MG TABLET PO SCH ×2 (10:55→18:35)
[2022-06-11] MEDS: DOCUSATE SODIUM 100 MG CAPSULE PO SCH ×2 (10:55→20:28)
[2022-06-11] MEDS: FISH OIL 1,000 MG CAPSULE PO SCH ×3 (10:56→20:33)
[2022-06-11] MEDS: morphine 4 MG/ML VIAL IV PRN ×2 (13:01→20:43)
--- NOTE | 2022-06-11 16:52 | Internal Med Progress Note ---
SUBJECTIVE Subjective Patient information: Note initiated : 06/11/22 at 4:48 pm Service Date, if different from initiated Date: [] Patient: Megan Comer 77 y/o F admitted on 06/10/22 for Choledocholithiasis. Chief Complaint: [] Interval history: Ms. Comer is a 77 year old F history of atrial fibrillation's status post pacemaker placement and on anticoagulations with Eliquis, chronic systolic CHF on Coreg, Lasix, Aldactone, lisinopril, presenting with epigastric and right upper quadrant abdominal pain. She presented to outside hospital ([facility]) ER, where she got the diagnosis of choledocholithiasis with 7.5 mm gallstone in the distal common bile duct with associated gallbladder wall fluid collection with swelling. The ER physician talked to our GI specialist Dr. Estevez who would want to perform ERCP. They also touch base with general surgeon Dr. Raymond who would want to be found laparoscopic cholecystectomy tomorrow. Admission request was called for medical management. 06/11: s/p ERCP by Dr. Fraser GI specialist on 06/10 evening, findings highly suspicious for pancreatic cancer. A stent was being placed in common bile duct. Request to transfer to [facility] for wall stent and endoscopic ultrasound. Patient is otherwise stable. Constitutional Vitals: Vital Signs Temp Pulse Resp BP Pulse Ox O2 Del Method O2 Flow Rate 36.6 C 71 16 132/70 95 2 06/11/22 12:00 06/11/22 12:00 06/11/22 12:00 06/11/22 12:00 06/11/22 12:00 06/11/22 12:00 06/11/22 12:00 Period Temp Pulse Resp BP Sys/Waddell Pulse Ox O2 Del Method O2 Flow Rate Last 24 Hr 36.1 C-36.6 C 69-75 14-23 92-132/49-78 89-100 Nasal Cannula- Room Air 2-2 Intake and Output 06/11/22 06/11/22 06/11/22 05:59 13:59 21:59 Intake Total 100 1044 Output Total 301 Balance -201 1044 Intake & Output: Intake & Output 06/11/22 06/11/22 06/11/22 05:59 13:59 21:59 Intake Total 100 1044 Output Total 301 Balance -201 1044 Intake: IV 100 1044 Sodium Chloride 0.9% 1,000 ml @ 994 75 mls/hr IV .[id number] [facility] Rx#: [id number] Zosyn 3.375 gm In Dextrose 5% 100 50 in Water 50 ml @ 100 mls/hr IV Q6H [facility] Rx#:[id number] Oral 0 Output: Void Amount 300 # of times incontinent of urine 1 Other: Urine Color Bright Yellow # Voids 1 Head Head exam: Present atraumatic and normal inspection Eye Eye exam: Present normal appearance ENT ENT exam: Present mucous membranes moist, normal exam and normal external ear exam Neck Neck exam: Present normal inspection Respiratory Respiratory exam: Present normal respiratory exam Cardiovascular Cardiovascular exam: Present normal rate and rhythm GI/Abdominal GI/Abdominal exam: Present normal bowel sounds Back Exam Back exam: Present normal inspection Neurological Exam Neurological exam: Present alert and oriented X3 Skin Skin exam: Present intact and warm OBJ DATA Labs CBC & Chem 7: 06/11/22 05:32 06/11/22 05:32 Labs: Abnormal Lab Results 06/11/22 06/11/22 06/10/22 05:32 05:32 16:05 RDW 14.6 H Sodium 130 L Total Bilirubin 1.8 H 2.3 H Direct Bilirubin 1.6 H GGT 271 H AST 46 H 44 H ALT 67 H 71 H Alkaline Phosphatase 255 H 270 H Total Protein 5.8 L Meds: Medications Acetaminophen (Acetaminophen 325 Mg Tablet) 650 mg PO Q6HP PRN; Protocol PRN Reason: Per Pain Protocol/Fever > 101 Albuterol/Ipratropium (Ipratropium/Albuterol 3 Ml Ampul.Neb) 3 ml NEB Q4HRT PRN PRN Reason: Wheezing Carvedilol (Carvedilol 12.5 Mg Tablet) 25 mg PO BIDCC [facility] Last Admin: 06/11/22 10:55 Dose: 25 mg Docusate Sodium (Docusate Sodium 100 Mg Capsule) 100 mg PO BID [facility] Last Admin: 06/11/22 10:55 Dose: 100 mg Fish Oil (Fish Oil 1,000 Mg Capsule) 1,000 mg PO TID [facility] Last Admin: 06/11/22 14:12 Dose: Not Given Sodium Chloride (Sodium Chloride 0.9%) 1,000 mls @ 75 mls/hr IV .[id number] [facility] Last Admin: 06/11/22 11:32 Dose: 75 mls/hr Piperacillin Sod/Tazobactam (Sod 3.375 gm/ Dextrose) 50 mls @ 100 mls/hr IV Q6H [facility]; Protocol Last Infusion: 06/11/22 12:05 Dose: Infused Lactated Ringer's (Lactated Ringers) 1,000 mls @ 125 mls/hr IV .Q8H [facility] Last Admin: 06/11/22 14:12 Dose: Not Given Latanoprost (Latanoprost Ophth Drops 2.5ml Bottle) 1 gtt [facility] Last Admin: 06/10/22 21:51 Dose: Not Given Lisinopril (Lisinopril 5 Mg Tablet) [facility] Last Admin: 06/10/22 21:51 Dose: Not Given Melatonin (Melatonin 3 Mg Tablet) 3 mg PO [facility] Last Admin: 06/10/22 21:51 Dose: Not Given Morphine Sulfate (Morphine 4 Mg/Ml Vial) 4 mg IV Q4HP PRN; Protocol PRN Reason: Per Pain Protocol Last Admin: 06/11/22 13:01 Dose: 4 mg Ondansetron HCl (Ondansetron 4 Mg/2 Ml Vial) 4 mg IV Q6HP PRN PRN Reason: Nausea And Vomiting Oxycodone HCl (Oxycodone Hcl 5 Mg Tablet) 5 mg PO Q4HP PRN; Protocol PRN Reason: Per Pain Protocol Last Admin: 06/11/22 07:46 Dose: 5 mg Doxylamine Succinate [Unisom (Doxylamine )] 25 Mg Tablet 1 dose PO [facility] PRN PRN Reason: Insomnia Senna (Sennosides 1 Tablet) 2 tab PO [facility] Last Admin: 06/10/22 21:51 Dose: Not Given Sodium Chloride (0.9 % Sodium Chloride 10 Ml Syringe) 10 ml IV Q8 [facility] Last Admin: 06/11/22 15:09 Dose: 10 ml Trazodone HCl (Trazodone Hcl 50 Mg Tablet) 25 mg PO [facility] PRN PRN Reason: Insomnia A/P Assessment and plan (1) Choledocholithiasis with acute cholecystitis with obstruction: Status: Acute (2) Systolic CHF, chronic: Status: Chronic (3) Atrial fibrillation: Status: Chronic Qualifiers: Atrial fibrillation type: unspecified persistent Qualified Code(s): I48.19 - Other persistent atrial fibrillation; I48.1 - Persistent atrial fibrillation (4) Pancreatic cancer: Status: Acute Narrative A/P Narrative: Assessment and Plans: 1. Choledocholithiasis with cholecystitis with obstruction: DDx: Pancreatic cancer Inpatient med surg s/p ERCP by Dr. Fraser GI specialist on 06/10 evening, findings highly suspicious for pancreatic cancer. A stent was being placed in common bile duct. [facility] for [facility] stent and endoscopic ul trasound. Holding Eliquis for any potential additional surgical intervention 2. h/o atrial fibrillation s/p pacemaker placement: Holding Eliquis for any potential additional surgical intervention Coreg as rate control 3. h/o chronic systolic CHF: Coreg as rate control Lisinopril Resume Lasix and Aldactone; Saline lock GI ppx: not currently indicated DVT ppx: SCDs Code status: DNI Prognosis: guarded Disposition: inpatient med surg; pending transfer to [facility] Time Spent With Patient Time: Total time spent is greater than 50% in coordination of care (as documented) at patient's floor/unit and/or counseling patient: Total time spent with greater than 50% in coordination of care (as documented) at patient's floor/unit and/or counseling patient:: 25 - 35 minutes
--- NOTE | 2022-06-11 17:08 | XRay Report ---
INDICATION: ERCP Protocol TECHNIQUE: ERCP was performed by Dr. Fraser. 3 minutes 47 seconds fluoroscopy utilized. A single spot film was obtained. There is a wire passing through a stricture in the distal common bile duct. This is felt to be a malignant stricture and pancreatic carcinoma is suspected IMPRESSION: ERCP performed by Dr. Fraser Interpreted and Authenticated by: Cisco Miramontes 06/11/22
[2022-06-11] MEDS ORDERED: traZODone HCL 50 MG TABLET PO PRN (19:57)
[2022-06-11] MEDS: LISINOPRIL 5 MG TABLET PO SCH (20:28)
[2022-06-11] MEDS: SENNOSIDES 1 TABLET PO SCH (20:28)
[2022-06-11] MEDS: MELATONIN 3 MG TABLET PO SCH (20:29)
[2022-06-11] MEDS: LATANOPROST OPHTH DROPS 2.5ML BOTTLE OU SCH (20:29)
[2022-06-11] MEDS ORDERED: DOXYLAMINE SUCCINATE 25 MG PO PRN (21:00)
[2022-06-12] MEDS: LACTATED RINGERS 1,000 ML IV SCH ×5 (00:41→13:28)
[2022-06-12] MEDS: 0.9 % SODIUM CHLORIDE 10 ML SYRINGE IV SCH ×3 (05:04→20:22)
[2022-06-12 06:55] LABS: Basophils # (Auto) 0.04 K/mcL (0.00-0.30); Basophils % (Auto) 0.6 % (0.0-2.0); Eosinophils # (Auto) 0.27 K/mcL (0.00-0.70); Hematocrit 36.6 % (34.1-44.9); Hemoglobin 11.9 g/dL (11.2-15.7); Lymphocytes # (Auto) 0.94 K/mcL (1.50-4.80); Mean Cell Volume 90.6 fL (80.0-100.0); Mean Corpuscular HGB Conc 32.5 g/dL (31.0-36.0); Mean Platelet Volume 9.7 fL (8.8-12.5); Monocytes % (Auto) 8.9 % (1.0-12.0); Neutrophils % (Auto) 72.2 % (38.0-78.0); Platelet Count 220 K/mcL (140-440); RBC 4.04 M/mcL (3.59-5.38); Red Cell Distribution Width 14.7 % (11.5-14.5); WBC 6.7 K/mcL (4.5-11.0)
[2022-06-12 07:18] LABS: ALT/SGPT 59 U/L (<40); AST/SGOT 36 U/L (<32); Albumin 3.8 gm/dL (3.2-5.2); Albumin/Globulin Ratio 1.5 (1.0-2.3); Alkaline Phosphatase 232 U/L (39-117); Bilirubin,Total 1.5 mg/dL (0.1-1.0); Blood Urea Nitrogen 14 mg/dL (8-23); Calcium 8.8 mg/dL (8.6-10.4); Carbon Dioxide 26 mmol/L (22-30); Chloride 95 mmol/L (96-108); Globulin 2.5 gm/dL (2.2-3.7); Glomerular Filtration Rate 85; Glucose 130 mg/dL (70-105)
[2022-06-12] MEDS: CARVEDILOL 12.5 MG TABLET PO SCH ×2 (07:33→17:58)
[2022-06-12] MEDS: FISH OIL 1,000 MG CAPSULE PO SCH ×3 (08:01→20:21)
[2022-06-12] MEDS: DOCUSATE SODIUM 100 MG CAPSULE PO SCH ×2 (08:46→20:21)
[2022-06-12] MEDS: oxyCODONE HCL 5 MG TABLET PO PRN ×2 (08:46→18:02)
[2022-06-12] MEDS ORDERED: SPIRONOLACTONE 25 MG TABLET PO SCH (09:00)
[2022-06-12] MEDS ORDERED: FUROSEMIDE 20 MG TABLET PO SCH (09:00)
--- NOTE | 2022-06-12 12:12 | Internal Med Progress Note ---
SUBJECTIVE Subjective Patient information: Note initiated : 06/12/22 at 12:08 pm Service Date, if different from initiated Date: [] Patient: Megan Comer 77 y/o F admitted on 06/10/22 for Choledocholithiasis. Chief Complaint: [] Interval history: Ms. Comer is a 77 year old F history of atrial fibrillation's status post pacemaker placement and on anticoagulations with Eliquis, chronic systolic CHF on Coreg, Lasix, Aldactone, lisinopril, presenting with epigastric and right upper quadrant abdominal pain. She presented to outside hospital ([facility]) ER, where she got the diagnosis of choledocholithiasis with 7.5 mm gallstone in the distal common bile duct with associated gallbladder wall fluid collection with swelling. The ER physician talked to our GI specialist Dr. Estevez who would want to perform ERCP. They also touch base with general surgeon Dr. Raymond who would want to be found laparoscopic cholecystectomy tomorrow. Admission request was called for medical management. 06/11: s/p ERCP by Dr. Fraser GI specialist on 06/10 evening, findings highly suspicious for pancreatic cancer. A stent was being placed in common bile duct. Request to transfer to [facility] for wall stent and endoscopic ultrasound. Patient is otherwise stable. 06/12: I spoke with GI Dr. Fraser from [facility], they have an appointment with the patient's on Wednesday 10:30 AM for endoscopic ultrasound and other indicated procedures but I do not currently have a bed available. Patient and the family stated that they are too weak to drive himself to [place] for the appointment and then they would still be for hospital to hospital transfer. There is currently no bed available at [facility]. After speaking with patient and family, the tentative plan would be to keep the patient's in- house while waiting for a bed available in [facility] and whenever beds become available we will coordinate hospital to hospital transfer in order for the patient to have the planned procedures. We will resume Eliquis for now. We will continue to provide symptoms management for nausea vomiting and abdominal pain. Would encourage patient to eat and drink. We will keep the air out running at 75 cc/h and the patient's is able to tolerate most of the oral intake. Constitutional Vitals: Vital Signs Temp Pulse Resp BP Pulse Ox O2 Del Method O2 Flow Rate 36.8 C 72 20 139/83 99 2 06/12/22 07:13 06/12/22 03:02 06/12/22 07:13 06/12/22 07:13 06/12/22 07:20 06/12/22 09:48 06/12/22 09:48 Period Temp Pulse Resp BP Sys/Waddell Pulse Ox O2 Del Method O2 Flow Rate Last 24 Hr 36.3 C-37.1 C 70-96 16-20 114-139/66-85 93-99 Nasal Cannula- Room Air 2-2 Intake and Output 06/11/22 06/12/22 06/12/22 21:59 05:59 13:59 Intake Total 440 2378 Output Total 300 250 100 Balance 140 2128 -100 Weight 56.359 kg Intake & Output: Intake & Output 06/11/22 06/12/22 06/12/22 21:59 05:59 13:59 Intake Total 440 2378 Output Total 300 250 100 Balance 140 2128 -100 Weight 56.359 kg Intake: IV 1898 Sodium Chloride 0.9% 1,000 ml @ 898 75 mls/hr IV .[id number] CELESTE Rx#: [id number] Lactated Ringers 1,000 ml @ 125 1000 mls/hr IV .Q8H CELESTE Rx#: [id number] Oral 440 480 Output: Void Amount 300 250 100 Other: Meal Dinner Percent of Meal Consumed 75% Feeding Ability Independent Urine Appearance Clear Clear Urine Color Yellow Yellow Dark Yellow Urine Odor Normal Strong # Voids 1 Head Head exam: Present atraumatic and normal inspection Eye Eye exam: Present normal appearance ENT ENT exam: Present mucous membranes moist, normal exam and normal external ear exam Neck Neck exam: Present normal inspection Respiratory Respiratory exam: Present normal respiratory exam Cardiovascular Cardiovascular exam: Present irregular rhythm GI/Abdominal GI/Abdominal exam: Present normal bowel sounds Back Exam Back exam: Present normal inspection Neurological Exam Neurological exam: Present alert and oriented X3 Skin Skin exam: Present intact and warm OBJ DATA Labs CBC & Chem 7: 06/12/22 05:14 06/12/22 05:14 Labs: Abnormal Lab Results 06/12/22 06/12/22 06/11/22 05:14 05:14 05:32 RDW 14.7 H Lymph % (Auto) 14.0 L Lymph # (Auto) 0.94 L Sodium 129 L Chloride 95 L Glucose 130 H Total Bilirubin 1.5 H 1.8 H Direct Bilirubin GGT AST 36 H 46 H ALT 59 H 67 H Alkaline Phosphatase 232 H 255 H Total Protein 5.8 L 06/11/22 06/10/22 05:32 16:05 RDW 14.6 H Lymph % (Auto) Lymph # (Auto) Sodium 130 L Chloride Glucose Total Bilirubin 2.3 H Direct Bilirubin 1.6 H GGT 271 H AST 44 H ALT 71 H Alkaline Phosphatase 270 H Total Protein Meds: Medications Acetaminophen (Acetaminophen 325 Mg Tablet) 650 mg PO Q6HP PRN; Protocol PRN Reason: Per Pain Protocol/Fever > 101 Albuterol/Ipratropium (Ipratropium/Albuterol 3 Ml Ampul.Neb) 3 ml NEB Q4HRT PRN PRN Reason: Wheezing Apixaban (Apixaban 5 Mg Tablet) 5 mg PO BID [facility] Carvedilol (Carvedilol 12.5 Mg Tablet) 25 mg PO BIDCC [facility] Last Admin: 06/12/22 07:33 Dose: 25 mg Docusate Sodium (Docusate Sodium 100 Mg Capsule) 100 mg PO BID [facility] Last Admin: 06/12/22 08:46 Dose: 100 mg Fish Oil (Fish Oil 1,000 Mg Capsule) 1,000 mg PO TID [facility] Last Admin: 06/12/22 08:01 Dose: Not Given Furosemide (Furosemide 20 Mg Tablet) 10 mg PO QDAY [facility] Last Admin: 06/12/22 08:47 Dose: 10 mg Lactated Ringer's (Lactated Ringers) 1,000 mls @ 125 mls/hr IV .Q8H [facility] Last Admin: 06/12/22 08:00 Dose: Not Given Latanoprost (Latanoprost Ophth Drops 2.5ml Bottle) 1 gtt OU HS [facility] Last Admin: 06/11/22 20:29 Dose: Not Given Lisinopril (Lisinopril 5 Mg Tablet) 5 mg PO QHS [facility] Last Admin: 06/11/22 20:28 Dose: 5 mg Melatonin (Melatonin 3 Mg Tablet) 3 mg PO HS [facility] Last Admin: 06/11/22 20:29 Dose: Not Given Morphine Sulfate (Morphine 4 Mg/Ml Vial) 4 mg IV Q4HP PRN; Protocol PRN Reason: Per Pain Protocol Last Admin: 06/11/22 20:43 Dose: 4 mg Ondansetron HCl (Ondansetron 4 Mg/2 Ml Vial) 4 mg IV Q6HP PRN PRN Reason: Nausea And Vomiting Oxycodone HCl (Oxycodone Hcl 5 Mg Tablet) 5 mg PO Q4HP PRN; Protocol PRN Reason: Per Pain Protocol Last Admin: 06/12/22 08:46 Dose: 5 mg Doxylamine Succinate [Unisom (Doxylamine )] 25 Mg Tablet 1 dose PO HSP PRN PRN Reason: Insomnia Senna (Sennosides 1 Tablet) 2 tab PO HS [facility] Last Admin: 06/11/22 20:28 Dose: 2 tab Sodium Chloride (0.9 % Sodium Chloride 10 Ml Syringe) 10 ml IV Q8 [facility] Last Admin: 06/12/22 05:04 Dose: Not Given Spironolactone (Spironolactone 25 Mg Tablet) 25 mg PO QDAY [facility] Last Admin: 06/12/22 08:47 Dose: 25 mg Trazodone HCl (Trazodone Hcl 50 Mg Tablet) 25 mg PO HSP PRN PRN Reason: Insomnia A/P Assessment and plan (1) Choledocholithiasis with acute cholecystitis with obstruction: Status: Acute (2) Systolic CHF, chronic: Status: Chronic (3) Atrial fibrillation: Status: Chronic Qualifiers: Atrial fibrillation type: unspecified persistent Qualified Code(s): I48.19 - Other persistent atrial fibrillation; I48.1 - Persistent atrial fibrillation (4) Pancreatic cancer: Status: Acute Narrative A/P Narrative: Assessment and Plans: 1. Choledocholithiasis with cholecystitis with obstruction: DDx: Pancreatic cancer Inpatient med surg s/p ERCP by Dr. Fraser GI specialist on 06/10 evening, findings highly suspic ious for pancreatic cancer. A stent was being placed in common bile duct. Request to transfer to [facility] for wall stent and endoscopic ultrasound. I spoke with GI Dr. Fraser from [facility], they have an appointment with the patient's on Wednesday 10:30 AM for endoscopic ultrasound and other indicated procedures but I do not currently have a bed available. Patient and the family stated that they are too weak to drive himself to [place] for the appointment and then they would still be for hospital to hospital transfer. There is currently no bed available at [facility]. After speaking with patient and family, the tentative plan would be to keep the patient's in- house while waiting for a bed available in [facility] and whenever beds become available we will coordinate hospital to hospital transfer in order for the patient to have the planned procedures. We will resume Eliquis for now. We will continue to provide symptoms management for nausea vomiting and abdominal pain. Would encourage patient to eat and drink. We will keep the air out ru nning at 75 cc/h and the patient's is able to tolerate most of the oral intake. 2. h/o atrial fibrillation s/p pacemaker placement: We will resume Eliquis for now Coreg as rate control 3. h/o chronic systolic CHF: Coreg as rate control Lisinopril Hold Lasix and Aldactone while running IV fluid GI ppx: not currently indicated DVT ppx: Eliquis Code status: DNI Prognosis: Stable Disposition: inpatient med surg; pending transfer to [facility] Time Spent With Patient Time: Total time spent is greater than 50% in coordination of care (as documented) at patient's floor/unit and/or counseling patient: Total time spent with greater than 50% in coordination of care (as documented) at patient's floor/unit and/or counseling patient:: 35 - 50 minutes
[2022-06-12] MEDS: MELATONIN 3 MG TABLET PO SCH (20:21)
[2022-06-12] MEDS: APIXABAN 5 MG TABLET PO SCH (20:21)
[2022-06-12] MEDS: LISINOPRIL 5 MG TABLET PO SCH (20:21)
[2022-06-12] MEDS: SENNOSIDES 1 TABLET PO SCH (20:21)
[2022-06-12] MEDS: LATANOPROST OPHTH DROPS 2.5ML BOTTLE OU SCH (20:22)
[2022-06-13] MEDS: LACTATED RINGERS 1,000 ML IV SCH (02:53)
[2022-06-13] MEDS: 0.9 % SODIUM CHLORIDE 10 ML SYRINGE IV SCH ×3 (05:26→20:28)
[2022-06-13] MEDS: oxyCODONE HCL 5 MG TABLET PO PRN ×2 (05:39→20:27)
[2022-06-13] MEDS: morphine 4 MG/ML VIAL IV PRN (06:01)
[2022-06-13] MEDS: ONDANSETRON 4 MG/2 ML VIAL IV PRN ×2 (06:10→13:47)
[2022-06-13 06:58] LABS: Basophils # (Auto) 0.04 K/mcL (0.00-0.30); Basophils % (Auto) 0.5 % (0.0-2.0); Eosinophils # (Auto) 0.29 K/mcL (0.00-0.70); Eosinophils % (Auto) 3.9 % (0.0-7.0); Hematocrit 38.5 % (34.1-44.9); Hemoglobin 12.5 g/dL (11.2-15.7); Lymphocytes # (Auto) 1.31 K/mcL (1.50-4.80); Lymphocytes % (Auto) 17.5 % (15.5-49.0); Mean Cell Volume 91.4 fL (80.0-100.0); Mean Corpuscular HGB Conc 32.5 g/dL (31.0-36.0); Monocytes # (Auto) 0.82 K/mcL (0.10-0.90); Neutrophils % (Auto) 66.8 % (38.0-78.0); Platelet Count 228 K/mcL (140-440); RBC 4.21 M/mcL (3.59-5.38); Red Cell Distribution Width 14.6 % (11.5-14.5); WBC 7.5 K/mcL (4.5-11.0)
[2022-06-13 07:35] LABS: ALT/SGPT 49 U/L (<40); AST/SGOT 31 U/L (<32); Albumin 3.5 gm/dL (3.2-5.2); Albumin/Globulin Ratio 1.2 (1.0-2.3); Alkaline Phosphatase 216 U/L (39-117); Bilirubin,Total 1.4 mg/dL (0.1-1.0); Blood Urea Nitrogen 12 mg/dL (8-23); Calcium 9.1 mg/dL (8.6-10.4); Carbon Dioxide 27 mmol/L (22-30); Chloride 98 mmol/L (96-108); Globulin 2.9 gm/dL (2.2-3.7); Glomerular Filtration Rate 89; Glucose 125 mg/dL (70-105)
[2022-06-13] MEDS: APIXABAN 5 MG TABLET PO SCH ×2 (08:28→20:26)
[2022-06-13] MEDS: FISH OIL 1,000 MG CAPSULE PO SCH ×3 (08:28→20:28)
[2022-06-13] MEDS: DOCUSATE SODIUM 100 MG CAPSULE PO SCH ×2 (08:29→20:26)
[2022-06-13] MEDS: CARVEDILOL 12.5 MG TABLET PO SCH ×2 (08:29→17:50)
--- NOTE | 2022-06-13 10:12 | Internal Med Progress Note ---
SUBJECTIVE Subjective Patient information: Note initiated : 06/13/22 at 10:10 am Service Date, if different from initiated Date: [] Patient: Megan Comer a 77 y/o F admitted on 06/10/22 for Choledocholithiasis. Chief Complaint: [] Interval history: Ms. Comer is a 77 year old F history of atrial fibrillation's status post pacemaker placement and on anticoagulations with Eliquis, chronic systolic CHF on Coreg, Lasix, Aldactone, lisinopril, presenting with epigastric and right upper quadrant abdominal pain. She presented to outside hospital ([facility]) ER, where she got the diagnosis of choledocholithiasis with 7.5 mm gallstone in the distal common bile duct with associated gallbladder wall fluid collection with swelling. The ER physician talked to our GI specialist Dr. Estevez who would want to perform ERCP. They also touch base with general surgeon Dr. Raymond who would want to be found laparoscopic cholecystectomy tomorrow. Admission request was called for medical management. 06/11: s/p ERCP by Dr. Fraser GI specialist on 06/10 evening, findings highly suspicious for pancreatic cancer. A stent was being placed in common bile duct. Request to transfer to [facility] for wall stent and endoscopic ultrasound. Patient is otherwise stable. 06/12: I spoke with GI Dr. Fraser from [facility], they have an appointment with the patient's on Wednesday 10:30 AM for endoscopic ultrasound and other indicated procedures but I do not currently have a bed available. Patient and the family stated that they are too weak to drive himself to [place] for the appointment and then they would still be for hospital to hospital transfer. There is currently no bed available at [facility]. After speaking with patient and family, the tentative plan would be to keep the patient's in- house while waiting for a bed available in [facility] and whenever beds become available we will coordinate hospital to hospital transfer in order for the patient to have the planned procedures. We will resume Eliquis for now. We will continue to provide symptoms management for nausea vomiting and abdominal pain. Would encourage patient to eat and drink. We will keep the air out running at 75 cc/h and the patient's is able to tolerate most of the oral intake. 06/13: There was no major overnight events. Finished ~50% of breakfast provided. c/o mild to moderate epigastric abdominal pain. c/o mild nausea. Continue diet. Continue symptoms management. Saline lock. Pending transfer to [facility] for EUS by GI Dr. Fraser. Constitutional Vitals: Vital Signs Temp Pulse Resp BP Pulse Ox O2 Del Method O2 Flow Rate 36.8 C 69 12 116/65 94 2 06/13/22 08:00 06/13/22 08:00 06/13/22 08:00 06/13/22 08:00 06/13/22 08:00 06/13/22 08:47 06/13/22 08:47 Period Temp Pulse Resp BP Sys/Waddell Pulse Ox O2 Del Method O2 Flow Rate Last 24 Hr 36.3 C-36.8 C 69-77 12-18 116-136/60-81 94-99 Nasal Cannula- Nasal Cannula 1-2 Intake and Output 06/12/22 06/13/22 06/13/22 21:59 05:59 13:59 Intake Total 120 1240 102 Output Total 900 Balance 120 340 102 Weight 57.776 kg Intake & Output: Intake & Output 06/12/22 06/13/22 06/13/22 21:59 05:59 13:59 Intake Total 120 1240 102 Output Total 900 Balance 120 340 102 Weight 57.776 kg Intake: IV 1000 102 Sodium Chloride 0.9% 1,000 ml @ 102 75 mls/hr IV .[id number] [facility] Rx#: [id number] Lactated Ringers 1,000 ml @ 75 1000 mls/hr IV .[id number] [facility] Rx#: [id number] Oral 120 240 Output: Void Amount 900 Other: Meal Lunch Percent of Meal Consumed 25% Urine Appearance Clear Urine Color Bright Yellow Head Head exam: Present atraumatic and normal inspection Eye Eye exam: Present normal appearance ENT ENT exam: Present mucous membranes moist, normal exam and normal external ear exam Neck Neck exam: Present normal inspection Respiratory Respiratory exam: Present normal respiratory exam Cardiovascular Cardiovascular exam: Present irregular rhythm Additional comments: cardiac pacemaker in place GI/Abdominal GI/Abdominal exam: Present normal bowel sounds Back Exam Back exam: Present normal inspection Neurological Exam Neurological exam: Present alert and oriented X3 Skin Skin exam: Present intact and warm OBJ DATA Labs CBC & Chem 7: 06/13/22 05:39 06/13/22 05:39 Labs: Abnormal Lab Results 06/13/22 06/13/22 06/12/22 05:39 05:39 05:14 RDW 14.6 H Lymph % (Auto) Lymph # (Auto) 1.31 L Sodium 129 L Chloride 95 L Glucose 125 H 130 H Total Bilirubin 1.4 H 1.5 H Direct Bilirubin GGT AST 36 H ALT 49 H 59 H Alkaline Phosphatase 216 H 232 H Total Protein 06/12/22 06/11/22 06/11/22 05:14 05:32 05:32 RDW 14.7 H 14.6 H Lymph % (Auto) 14.0 L Lymph # (Auto) 0.94 L Sodium Chloride Glucose Total Bilirubin 1.8 H Direct Bilirubin GGT AST 46 H ALT 67 H Alkaline Phosphatase 255 H Total Protein 5.8 L 06/10/22 16:05 RDW Lymph % (Auto) Lymph # (Auto) Sodium 130 L Chloride Glucose Total Bilirubin 2.3 H Direct Bilirubin 1.6 H GGT 271 H AST 44 H ALT 71 H Alkaline Phosphatase 270 H Total Protein Meds: Medications Acetaminophen (Acetaminophen 325 Mg Tablet) 650 mg PO Q6HP PRN; Protocol PRN Reason: Per Pain Protocol/Fever > 101 Albuterol/Ipratropium (Ipratropium/Albuterol 3 Ml Ampul.Neb) 3 ml NEB Q4HRT PRN PRN Reason: Wheezing Apixaban (Apixaban 5 Mg Tablet) 5 mg PO BID [facility] Last Admin: 06/13/22 08:28 Dose: 5 mg Carvedilol (Carvedil[facility] 12.5 Mg Tablet) [facility] Last Admin: 06/13/22 08:29 Dose: 25 mg Docusate Sodium (Docusate Sodium 100 Mg Capsule) 100 mg PO BID [facility] Last Admin: 06/13/22 08:29 Dose: 100 mg Fish Oil (Fish Oil 1,000 Mg Capsule) 1,000 mg PO TID [facility] Last Admin: 06/13/22 08:28 Dose: 1,000 mg Latanoprost (Latanoprost Ophth Drops 2.5ml Bottle) 1 gtt OU HS [facility] Last Admin: 06/12/22 20:22 Dose: Not Given Lisinopril (Lisinopril 5 Mg Tablet) 5 mg PO QHS [facility] Last Admin: 06/12/22 20:21 Dose: 5 mg Melatonin (Melatonin 3 Mg Tablet) 3 mg PO HS [facility] Last Admin: 06/12/22 20:21 Dose: 3 mg Morphine Sulfate (Morphine 4 Mg/Ml Vial) 4 mg IV Q4HP PRN; Protocol PRN Reason: Per Pain Protocol Last Admin: 06/13/22 06:01 Dose: 4 mg Ondansetron HCl (Ondansetron 4 Mg/2 Ml Vial) 4 mg IV Q6HP PRN PRN Reason: Nausea And Vomiting Last Admin: 06/13/22 06:10 Dose: 4 mg Oxycodone HCl (Oxycodone Hcl 5 Mg Tablet) 5 mg PO Q4HP PRN; Protocol PRN Reason: Per Pain Protocol Last Admin: 06/13/22 05:39 Dose: 5 mg Doxylamine Succinate [Unisom (Doxylamine )] 25 Mg Tablet 1 dose PO HSP PRN PRN Reason: Insomnia Senna (Sennosides 1 Tablet) 2 tab PO HS [facility] Last Admin: 06/12/22 20:21 Dose: 2 tab Sodium Chloride (0.9 % Sodium Chloride 10 Ml Syringe) 10 ml IV Q8 [facility] Last Admin: 06/13/22 05:26 Dose: Not Given Trazodone HCl (Trazodone Hcl 50 Mg Tablet) 25 mg PO HSP PRN PRN Reason: Insomnia A/P Assessment and plan (1) Choledocholithiasis with acute cholecystitis with obstruction: Status: Acute (2) Systolic CHF, chronic: Status: Chronic (3) Atrial fibrillation: Status: Chronic Qualifiers: Atrial fibrillation type: unspecified persistent Qualified Code(s): I48.19 - Other persistent atrial fibrillation; I48.1 - Persistent atrial fibrillation (4) Pancreatic cancer: Status: Acute Narrative A/P Narrative: Assessment and Plans: 1. Choledocholithiasis with cholecystitis with obstruction: DDx: Pancreatic cancer Inpatient med surg s/p ERCP by Dr. Fraser GI specialist on 06/10 evening, findings highly suspicious for pancreatic cancer. A stent was being placed in common bile duct. Request to transfer to [facility] for wall stent and endoscopic ultrasound. I spoke with GI Dr. Fraser from [facility], they have an appointment with the patient's on Wednesday 10:30 AM for endoscopic ultrasound and other indicated procedures but I do not currently have a bed available. Patient and the family stated that they are too weak to drive himself to [place] for the appointment and then they would still be for hospital to hospital transfer. There is currently no bed available at [facility]. After speaking with patient and family, the tentative plan would be to keep the patient's in- house while waiting for a bed available in [facility] and whenever beds become available we will coordinate hospital to hospital transfer in order for the patient to have the planned procedures. We will resume Eliquis for now. We will continue to provide symptoms management for nausea vomiting and abdominal pain. Would encourage patient to eat and drink. Saline lock 2. h/o atrial fibrillation s/p pacemaker placement: We will resume Eliquis for now Coreg as rate control 3. h/o chronic systolic CHF: Coreg as rate control Lisinopril Saline lock Resume Lasix/Aldactone GI ppx: not currently indicated DVT ppx: Eliquis Code status: DNI Prognosis: Stable Disposition: inpatient med surg; pending transfer to [facility] Time Spent With Patient Time: Total time spent is greater than 50% in coordination of care (as documented) at patient's floor/unit and/or counseling patient: Total time spent with greater than 50% in coordination of care (as documented) at patient's floor/unit and/or counseling patient:: 25 - 35 minutes
[2022-06-13] MEDS: SENNOSIDES 1 TABLET PO SCH (20:26)
[2022-06-13] MEDS: MELATONIN 3 MG TABLET PO SCH (20:26)
[2022-06-13] MEDS: LISINOPRIL 5 MG TABLET PO SCH (20:26)
[2022-06-13] MEDS: LATANOPROST OPHTH DROPS 2.5ML BOTTLE OU SCH (20:28)
[2022-06-14] MEDS: oxyCODONE HCL 5 MG TABLET PO PRN ×3 (01:42→14:37)
[2022-06-14] MEDS: 0.9 % SODIUM CHLORIDE 10 ML SYRINGE IV SCH ×2 (05:25→14:39)
[2022-06-14 07:14] LABS: Basophils # (Auto) 0.04 K/mcL (0.00-0.30); Basophils % (Auto) 0.6 % (0.0-2.0); Eosinophils # (Auto) 0.18 K/mcL (0.00-0.70); Eosinophils % (Auto) 2.6 % (0.0-7.0); Hemoglobin 11.1 g/dL (11.2-15.7); Lymphocytes # (Auto) 1.21 K/mcL (1.50-4.80); Lymphocytes % (Auto) 17.4 % (15.5-49.0); Mean Cell Volume 92.6 fL (80.0-100.0); Mean Corpuscular HGB Conc 31.7 g/dL (31.0-36.0); Mean Platelet Volume 9.9 fL (8.8-12.5); Neutrophils % (Auto) 69.1 % (38.0-78.0); Platelet Count 216 K/mcL (140-440); RBC 3.78 M/mcL (3.59-5.38); Red Cell Distribution Width 14.6 % (11.5-14.5)
[2022-06-14 07:42] LABS: ALT/SGPT 39 U/L (<40); AST/SGOT 25 U/L (<32); Albumin 3.3 gm/dL (3.2-5.2); Albumin/Globulin Ratio 1.3 (1.0-2.3); Alkaline Phosphatase 181 U/L (39-117); Bilirubin,Total 1.2 mg/dL (0.1-1.0); Blood Urea Nitrogen 18 mg/dL (8-23); Calcium 8.7 mg/dL (8.6-10.4); Carbon Dioxide 28 mmol/L (22-30); Chloride 94 mmol/L (96-108); Globulin 2.6 gm/dL (2.2-3.7); Glomerular Filtration Rate 94; Glucose 127 mg/dL (70-105)
[2022-06-14] MEDS: CARVEDILOL 12.5 MG TABLET PO SCH (08:37)
[2022-06-14] MEDS: DOCUSATE SODIUM 100 MG CAPSULE PO SCH (08:39)
[2022-06-14] MEDS: APIXABAN 5 MG TABLET PO SCH (08:40)
[2022-06-14] MEDS: FISH OIL 1,000 MG CAPSULE PO SCH (08:59)
[2022-06-14] MEDS ORDERED: SPIRONOLACTONE 25 MG TABLET PO SCH (09:00)
[2022-06-14] MEDS ORDERED: FUROSEMIDE 20 MG TABLET PO SCH (09:00)
[2022-06-14] MEDS ORDERED: CALCIUM CARBONATE 500 MG TAB.CHEW CHEWED PRN (11:45)
--- NOTE | 2022-06-14 11:48 | Internal Med Progress Note ---
SUBJECTIVE Subjective Patient information: Note initiated : 06/14/22 at 11:46 am Service Date, if different from initiated Date: [] Patient: Megan Comer a 77 y/o F admitted on 06/10/22 for Choledocholithiasis. Chief Complaint: [] Interval history: Ms. Comer is a 77 year old F history of atrial fibrillation's status post pacemaker placement and on anticoagulations with Eliquis, chronic systolic CHF on Coreg, Lasix, Aldactone, lisinopril, presenting with epigastric and right upper quadrant abdominal pain. She presented to outside hospital ([facility]) ER, where she got the diagnosis of choledocholithiasis with 7.5 mm gallstone in the distal common bile duct with associated gallbladder wall fluid collection with swelling. The ER physician talked to our GI specialist Dr. Estevez who would want to perform ERCP. They also touch base with general surgeon Dr. Raymond who would want to be found laparoscopic cholecystectomy tomorrow. Admission request was called for medical management. 06/11: s/p ERCP by Dr. Fraser GI specialist on 06/10 evening, findings highly suspicious for pancreatic cancer. A stent was being placed in common bile duct. Request to transfer to [facility] for wall stent and endoscopic ultrasound. Patient is otherwise stable. 06/12: I spoke with GI Dr. Fraser from [facility], they have an appointment with the patient's on Wednesday 10:30 AM for endoscopic ultrasound and other indicated procedures but I do not currently have a bed available. Patient and the family stated that they are too weak to drive himself to [place] for the appointment and then they would still be for hospital to hospital transfer. There is currently no bed available at [facility]. After speaking with patient and family, the tentative plan would be to keep the patient's in- house while waiting for a bed available in [facility] and whenever beds become available we will coordinate hospital to hospital transfer in order for the patient to have the planned procedures. We will resume Eliquis for now. We will continue to provide symptoms management for nausea vomiting and abdominal pain. Would encourage patient to eat and drink. We will keep the air out running at 75 cc/h and the patient's is able to tolerate most of the oral intake. 06/13: There was no major overnight events. Finished ~50% of breakfast provided. c/o mild to moderate epigastric abdominal pain. c/o mild nausea. Continue diet. Continue symptoms management. Saline lock. Pending transfer to [facility] for EUS by GI Dr. Fraser. 06/14: c/o 4/10 epigastric sharp pain. c/o vomiting after IV morphine. Currently on no. 2 on [facility] waiting list. Continue regular diet. TUMS PRN indigestion. Continue symptoms management. Saline lock. Pending transfer to [facility] for EUS by GI Dr. Fraser. Constitutional Vitals: Vital Signs Temp Pulse Resp BP Pulse Ox O2 Del Method O2 Flow Rate 36.8 C 71 20 125/78 98 1 06/14/22 07:50 06/14/22 03:25 06/14/22 07:50 06/14/22 07:50 06/14/22 07:50 06/14/22 07:50 06/14/22 07:50 Period Temp Pulse Resp BP Sys/Waddell Pulse Ox O2 Del Method O2 Flow Rate Last 24 Hr 36.2 C-36.8 C 69-71 14-20 112-126/71-78 95-98 Nasal Cannula- Nasal Cannula 1-2 Intake and Output 06/13/22 06/14/22 06/14/22 21:59 05:59 13:59 Intake Total 1480 480 Output Total 250 150 Balance 1230 330 Weight 58.287 kg Intake & Output: Intake & Output 06/13/22 06/14/22 06/14/22 21:59 05:59 13:59 Intake Total 1480 480 Output Total 250 150 Balance 1230 330 Weight 58.287 kg Intake: IV 1000 Lactated Ringers 1,000 ml @ 75 1000 mls/hr IV .[id number] [facility] Rx#: [id number] Oral 480 480 Output: Void Amount 250 150 Other: Meal Lunch Percent of Meal Consumed 75% Feeding Ability Assist with Tray Set Up Urine Color Yellow Yellow Head Head exam: Present atraumatic and normal inspection Eye Eye exam: Present normal appearance ENT ENT exam: Present mucous membranes moist, normal exam and normal external ear exam Neck Neck exam: Present normal inspection Respiratory Respiratory exam: Present normal respiratory exam Cardiovascular Cardiovascular exam: Present irregular rhythm Additional comments: Pacemaker in place GI/Abdominal GI/Abdominal exam: Present normal bowel sounds Back Exam Back exam: Present normal inspection Neurological Exam Neurological exam: Present alert and oriented X3 Skin Skin exam: Present intact and warm OBJ DATA Labs CBC & Chem 7: 06/14/22 05:22 06/14/22 05:21 Labs: Abnormal Lab Results 06/14/22 06/14/22 06/13/22 05:22 05:21 05:39 Hgb 11.1 L RDW 14.6 H Lymph % (Auto) Lymph # (Auto) 1.21 L Sodium 131 L Chloride 94 L Creatinine 0.5 L Glucose 127 H 125 H Total Bilirubin 1.2 H 1.4 H AST ALT 49 H Alkaline Phosphatase 181 H 216 H 06/13/22 06/12/22 06/12/22 05:39 05:14 05:14 Hgb RDW 14.6 H 14.7 H Lymph % (Auto) 14.0 L Lymph # (Auto) 1.31 L 0.94 L Sodium 129 L Chloride 95 L Creatinine Glucose 130 H Total Bilirubin 1.5 H AST 36 H ALT 59 H Alkaline Phosphatase 232 H Meds: Medications Acetaminophen (Acetaminophen 325 Mg Tablet) 650 mg PO Q6HP PRN; Protocol PRN Reason: Per Pain Protocol/Fever > 101 Albuterol/Ipratropium (Ipratropium/Albuterol 3 Ml Ampul.Neb) 3 ml NEB Q4HRT PRN PRN Reason: Wheezing Apixaban (Apixaban 5 Mg Tablet) 5 mg PO BID [facility] Last Admin: 06/14/22 08:40 Dose: 5 mg Carvedilol ([facility] 12.5 Mg Tablet) [facility] Admin: 06/14/22 08:37 Dose: 25 mg Docusate Sodium (Docusate Sodium 100 Mg Capsule) 100 mg PO BID [facility] Last Admin: 06/14/22 08:39 Dose: 100 mg Fish Oil (Fish Oil 1,000 Mg Capsule) 1,000 mg PO TID [facility] Last Admin: 06/14/22 08:59 Dose: Not Given Furosemide (Furosemide 20 Mg Tablet) 10 mg PO DAILY [facility] Last Admin: 06/14/22 08:39 Dose: 10 mg Latanoprost (Latanoprost Ophth Drops 2.5ml Bottle) 1 gtt OU HS [facility] Last Admin: 06/13/22 20:28 Dose: Not Given Lisinopril (Lisinopril 5 Mg Tablet) 5 mg PO QHS [facility] Last Admin: 06/13/22 20:26 Dose: 5 mg Melatonin (Melatonin 3 Mg Tablet) 3 mg PO [facility] Last Admin: 06/13/22 20:26 Dose: 3 mg Morphine Sulfate (Morphine 4 Mg/Ml Vial) 4 mg IV Q4HP PRN; Protocol PRN Reason: Per Pain Protocol Last Admin: 06/13/22 06:01 Dose: 4 mg Ondansetron HCl (Ondansetron 4 Mg/2 Ml Vial) 4 mg IV Q6HP PRN PRN Reason: Nausea And Vomiting Last Admin: 06/13/22 13:47 Dose: 4 mg Oxycodone HCl (Oxycodone Hcl 5 Mg Tablet) 5 mg PO Q4HP PRN; Protocol PRN Reason: Per Pain Protocol Last Admin: 06/14/22 08:40 Dose: 5 mg Doxylamine Succinate [Unisom (Doxylamine )] 25 Mg Tablet 1 dose PO HSP PRN PRN Reason: Insomnia Senna (Sennosides 1 Tablet) 2 tab PO [facility] Last Admin: 06/13/22 20:26 Dose: 2 tab Sodium Chloride (0.9 % Sodium Chloride 10 Ml Syringe) 10 ml IV Q8 [facility] Last Admin: 06/14/22 05:25 Dose: Not Given Spironolactone (Spironolactone 25 Mg Tablet) 25 mg PO DAILY [facility] Last Admin: 06/14/22 08:38 Dose: 25 mg Trazodone HCl (Trazodone Hcl 50 Mg Tablet) 25 mg PO HSP PRN PRN Reason: Insomnia A/P Assessment and plan (1) Choledocholithiasis with acute cholecystitis with obstruction: Status: Acute (2) Systolic CHF, chronic: Status: Chronic (3) Atrial fibrillation: Status: Chronic Qualifiers: Atrial fibrillation type: unspecified persistent Qualified Code(s): I48.19 - Other persistent atrial fibrillation; I48.1 - Persistent atrial fibrillation (4) Pancreatic cancer: Status: Acute Narrative A/P Narrative: Assessment and Plans: 1. Choledocholithiasis with cholecystitis with obstruction: DDx: Pancreatic cancer Inpatient med surg s/p ERCP by Dr. Fraser GI specialist on 06/10 evening, findings highly suspicious for pancreatic cancer. A stent was being placed in common bile duct. Request to transfer to [facility] for wall stent and endoscopic ultrasound. I spoke with GI Dr. Fraser from [facility], they have an appointment with the patient's on Wednesday 10:30 AM for endoscopic ultrasound and other indicated procedures but I do not currently have a bed available. Patient and the family stated that they are too weak to drive himself to [place] for the appointment and then they would still be for hospital to hospital transfer. There is currently no bed available at [facility]. After speaking with patient and family, the tentative plan would be to keep the patient's in- house while waiting for a bed available in [facility] and whenever beds become available we will coordinate hospital to hospital transfer in order for the patient to have the planned procedures. We will resume Eliquis for now. We will continue to provide symptoms management for nausea vomiting and abdominal pain. Would encourage patient to eat and drink. Saline lock TUMS PRN indigestion 2. h/o atrial fibrillation s/p pacemaker placement: We will resume Eliquis for now Coreg as rate control 3. h/o chronic systolic CHF: Coreg as rate control Lisinopril Saline lock Resume Lasix/Aldactone GI ppx: not currently indicated DVT ppx: Eliquis Code status: DNI Prognosis: Stable Disposition: inpatient med surg; pending transfer to [facility] Time Spent With Patient Time: Total time spent is greater than 50% in coordination of care (as documented) at patient's floor/unit and/or counseling patient: Total time spent with greater than 50% in coordination of care (as documented) at patient's floor/unit and/or counseling patient:: 25 - 35 minutes
--- NOTE | 2022-06-14 13:23 | Discharge Summary ---
Discharge Provider Provider IMPORTANT FOLLOW-UP INFORMATION FOR PCP: Patient information: Note initiated : 06/14/22 at 1:21 pm Service Date, if different from initiated Date: [] Patient: Megan Comer 77 y/o F admitted on 06/10/22 for Choledocholithiasis. Chief Complaint: [] Date of admission: 06/10/22 15:24 Discharge date: 06/14/22 Primary care physician: Evelia Mixon Attending physician on admission: Elan Shelton Consults: 06/10/22 15:56 Consult to Physician [CONS] Routine Comment: Consulting Provider: Christian Fraser Reason For Exam: Physician to Consult Consult to Physician [CONS] Routine Comment: Consulting Provider: Janna Raymond Reason For Exam: Physician to Consult Attending physician on discharge: Elan Shelton COURSE Hospital Course Hospital course: Ms. Comer is a 77 year old F history of atrial fibrillation's status post pacemaker placement and on anticoagulations with Eliquis, chronic systolic CHF on Coreg, Lasix, Aldactone, lisinopril, presenting with epigastric and right upper quadrant abdominal pain. She presented to outside hospital ([facility]) ER, where she got the diagnosis of choledocholithiasis with 7.5 mm gallstone in the distal common bile duct with associated gallbladder wall fluid collection with swelling. The ER physician talked to our GI specialist Dr. Estevez who woul d want to perform ERCP. They also touch base with general surgeon Dr. Raymond who would want to be found laparoscopic cholecystectomy tomorrow. Admission request was called for medical management. 06/11: s/p ERCP by Dr. Fraser GI specialist on 06/10 evening, findings highly suspicious for pancreatic cancer. A stent was being placed in common bile duct. Request to transfer to [facility] for wall stent and endoscopic ultrasound. Patient is otherwise stable. 06/12: I spoke with GI Dr. Fraser from [facility], they have an appointment with the patient's on Wednesday 10:30 AM for endoscopic ultrasound and other indicated procedures but I do not currently have a bed available. Patient and the family stated that they are too weak to drive himself to [place] for the appointment and then they would still be for hospital to hospital transfer. There is currently no bed available at [facility]. After speaking with patient and family, the tentative plan would be to keep the patient's in- house while waiting for a bed available in [facility] and whenever beds become available we will coordinate hospital to hospital transfer in order for the patient to have the planned procedures. We will resume Eliquis for now. We will continue to provide symptoms management for nausea vomiting and abdominal pain. Would encourage patient to eat and drink. We will keep the air out running at 75 cc/h and the patient's is able to tolerate most of the oral intake. 06/13: There was no major overnight events. Finished ~50% of breakfast provided. c/o mild to moderate epigastric abdominal pain. c/o mild nausea. Continue diet. Continue symptoms management. Saline lock. Pending transfer to [facility] for EUS by GI Dr. Fraser. 06/14: c/o 4/10 epigastric sharp pain. c/o vomiting after IV morphine. Currently on no. 2 on [facility] waiting list. Continue regular diet. TUMS PRN indigestion. Continue symptoms management. Saline lock. Pending transfer to [facility] for EUS by GI Dr. Fraser. Accepted by Dr. Khoury from [facility]. Discharge diagnosis: Pancreatic cancer Time Spent with Patient Time attestation: Total time spent providing and/or coordinating discharge services: Time spent: Less than 30 minutes EXAM Constitutional Vitals: Temp Pulse Resp BP Pulse Ox O2 Del Method O2 Flow Rate 36.8 C 71 16 120/75 96 1 06/14/22 12:00 06/14/22 03:25 06/14/22 12:00 06/14/22 12:00 06/14/22 12:00 06/14/22 12:00 06/14/22 07:50 General appearance: cooperative and no acute distress Head Head exam: Present atraumatic and normocephalic Eye Eye exam: Present EOMI and PERRL ENT ENT exam: Present mucous membranes moist, normal exam and normal external ear exam Neck Neck exam: Present normal inspection; Absent lymphadenopathy, tenderness or thyromegaly Respiratory Respiratory exam: Absent accessory muscle use, respiratory distress or wheezes Cardiovascular Cardiovascular exam: Present normal rate and rhythm; Absent JVD GI/Abdominal GI/Abdominal exam: Present normal bowel sounds and soft; Absent organomegaly or tenderness Extremities Exam Extremities exam: Present full ROM, normal capillary refill and normal inspection; Absent tenderness Neurological Exam Neurological exam: Present alert, CN II-XII intact and oriented X3; Absent motor sensory deficit Psychiatric Psychiatric exam: Present normal affect and normal mood; Absent anxious or depressed Skin Skin exam: Present dry and intact Discharge Data Data Completed and Pending Labs on day of discharge: Labs from last 24 hours 06/14/22 06/14/22 05:22 05:21 WBC 7.0 RBC 3.78 Hgb 11.1 L Hct 35.0 MCV 92.6 MCH 29.4 MCHC 31.7 RDW 14.6 H Plt Count 216 MPV 9.9 Immature Gran % (Auto) 0.3 Neut % (Auto) 69.1 Lymph % (Auto) 17.4 Ross % (Auto) 10.0 Eos % (Auto) 2.6 Baso % (Auto) 0.6 Lymph # (Auto) 1.21 L Ross # (Auto) 0.70 Eos # (Auto) 0.18 Baso # (Auto) 0.04 Immature Gran # 0.02 Absolute Neutrophils 4.82 Sodium 131 L Potassium 4.1 Chloride 94 L Carbon Dioxide 28 Anion Gap 9.0 BUN 18 Creatinine 0.5 L GFR Calculation 94 Glucose 127 H Calcium 8.7 Total Bilirubin 1.2 H AST 25 ALT 39 Alkaline Phosphatase 181 H Total Protein 5.9 Albumin 3.3 Globulin 2.6 Albumin/Globulin Ratio 1.3 Discharge Plan Patient/Caregiver Discharge Instructions Activity: increase activity as tolerated Diet: Regular Diet Prescriptions: Continued Eliquis 5 mg tablet 5 mg PO BID Qty: 180 1RF lisinopril 5 mg tablet 5 mg PO QHS Qty: 90 2RF carvedilol 25 mg tablet 25 mg PO BID Qty: 60 1RF omega-3 acid ethyl esters [Lovaza] 1 gram capsule 1 cap PO TID 90 Days Qty: 270 2RF furosemide 20 mg tablet 10 mg PO QDAY spironolactone 25 mg tablet 1 tab PO QDAY latanoprost (PF) 0.005 % drops 1 drp OPHTHALMIC (EYE) HS melatonin 1 mg tablet 1 tab PO HS acetaminophen 500 mg Capsule 1,000 mg PO Q8H PRN (Reason: Pain) Unisom (doxylamine) 25 mg Tablet 25 mg PO HS PRN (Reason: Insomnia) Follow Up Plan Patient Disposition: General Acute Hospital Rehab Potential: Good I certify that the patient requires SNF services: No Overall status at discharge: patient is progressing back to baseline Discharge Orders: Discharge Order (Routine); Ordered 06/14/22 Ordered By: Elan Shelton
== END 2022-06-14 14:51 | disposition short-term general hospital (02) | DRG 436 ==
LOC: MEDSUR 15:24
PROVIDERS: ADMIT Internal Medicine; ATTEND Internal Medicine